=== PATIENT | male | born 1930 | race Caucasian/White ===

== ENCOUNTER 2016-08-18 14:19 | Inpatient (IN) | payer MEDICARE ==
[2016-08-18] MEDS ORDERED: NS 0.9% 1000 ML* 1,000 ML IV ONE (18:39)
--- NOTE | 2016-08-18 18:49 | RAD ---
Indication: Cough, pneumonia. Single frontal view of the chest performed at 1825 hours was reviewed. Comparison is made with previous exam dated June 08, 2016. No mediastinal shift is noted. Heart is of normal size and configuration. Lung riojas appear clear. Pacemaker leads are in place. IMPRESSION: PACEMAKER LEADS IN PLACE. NO PNEUMOTHORAX OR PNEUMONIA IS NOTED.
[2016-08-18 18:54] LABS: Hematocrit 44 % (42-52); Hemoglobin 15.1 g/dl (14.0-18.0); Mean Corpuscular HGB Conc 34 g/dl (31-36); Mean Corpuscular Hemoglobin 31 pg (27-31); Mean Corpuscular Volume 90 fL (80-94); Mean Platelet Volume 7 um3 (7.4-10.4); Red Blood Count 4.95 10^6/ul (4.0-5.4); Red Cell Distribution Width 13 % (10.5-15); White Blood Count 5.7 10^3/ul (3.5-10.8)
[2016-08-18 19:15] LABS: BUN/Creatinine Ratio 17.5 (8-20); Calcium 9.4 mg/dL (8.6-10.3); EGFR African American 94.8 (>60); EGFR Non-African American 73.7 (>60); Globulin 2.9 g/dL (2-4); Potassium 3.4 mmol/L (3.5-5.0); Total Bilirubin 0.5 mg/dL (0.2-1.0); Total Protein 6.9 g/dL (6.4-8.9)
[2016-08-18 19:17] LABS: Troponin I 0.03 ng/mL (<0.04)
[2016-08-18 19:47] LABS: Urine Bilirubin Negative (Negative); Urine Glucose Negative (Negative); Urine Nitrite Negative (Negative)
[2016-08-18] MEDS ORDERED: Ramipril CAP* 10 MG PO ONE (21:28)
[2016-08-18] MEDS ORDERED: hydrALAZINE TAB* 25 MG PO ONE (21:28)
--- NOTE | 2016-08-18 22:42 | ED ---
Vahe Hoffman Adam, scribed for Yasmany Benedict MD on 08/18/16 at 1816 . Complex/Multi-Sys Presentation - HPI Summary HPI Summary: Pt is an 86 year old male presenting with weakness and confusion since being dx with PNA and flu 5 days ago. His states that they were on a cruise until yesterday but the pt had blood work done on the cruise 5 days ago. They dx'd him with PNA, flu, and found fluid in his lungs. Pt has already completed a 5 day regimen of Tamiflu. However, his states that he has been displaying confusion, memory loss, and generalized weakness (his has to help him up). He has also been having decreased PO intake and diarrhea (1x on the cruise and 1x today). He ate oatmeal this morning. PMHx of HTN, HLD, CAD, COPD, and ICD. - History Of Current Complaint Chief Complaint: EDGeneral Time Seen by Provider: 08/18/16 17:57 Hx Obtained From: Patient Onset/Duration: Gradual Onset, Lasting Days, Still Present Timing: Constant Severity Currently: Moderate Severity Initially: Moderate Aggravating Factor(s): Nothing Alleviating Factor(s): Nothing Associated Signs And Symptoms: Positive: Confusion, Weakness, Diarrhea - Allergies/Home Medications Allergies/Adverse Reactions: Allergies Allergy/AdvReac Type Severity Reaction Status Date / Time Celecoxib [From Celebrex] Allergy Unknown Verified 03/15/16 17:19 Reaction Details environmental Allergy Unknown Unknown Uncoded 03/15/16 17:19 Reaction Details PMH/Surg Hx/FS Hx/Imm Hx Endocrine/Hematology History: Reports: Hx Anticoagulant Therapy - low dose asa Denies: Hx Diabetes Cardiovascular History: Reports: Hx Aneurysm, Hx Angina, Hx Coronary Artery Disease, Hx Hypercholesterolemia, Hx Hypertension, Hx Pacemaker/ICD, Other Cardiovascular Problems/Disorders - THORACIC AORTIC ANEURYSM Denies: Hx Myocardial Infarction, Hx Valvular Heart Disease Respiratory History: Reports: Hx Chronic Obstructive Pulmonary Disease (COPD), Hx Sleep Apnea - current BiPAP user, Other Respiratory Problems/Disorders - allergic rhinitis Denies: Hx Asthma GI History: Reports: Hx Gall Bladder Disease - s/p cholecystectomy, Hx Gastroesophageal Reflux Disease - meds, Other GI Disorders - s/p bilateral inguinal hernia History: Reports: Hx Benign Prostatic Hyperplasia - w/o urinary obstruction Denies: Hx Renal Disease - [place]ULI IN 70'S Sensory History: Reports: Hx Contacts or Glasses Opthamlomology History: Reports: Hx Contacts or Glasses Neurological History: Reports: Other Neuro Impairments/Disorders - brain shunt Psychiatric History: Reports: Hx Depression - Surgical History Surgery Procedure, Year, and Place: tonsils, bilateral inguinal hernia, 2009- pacemaker, 2009- PROGRAM COORDINATOR EXECUTIVE EDUCATION shunt for NPH,left arm bicep removal, cholecysectomy; head SX 2X to the shunt 02/2015 at [place]. Infectious Disease History: No Infectious Disease History: Denies: Traveled Outside the [place] in Last 30 Days - Family History Known Family History: Positive: Hypertension, Other - cancer: lung, colon - Social History Occupation: Retired Lives: With Family - Alcohol Use: None Hx Substance Use: No Substance Use Type: Reports: None Hx Tobacco Use: No Smoking Status (MU): Never Smoked Tobacco Review of Systems Positive: Diarrhea, Other - Decreased PO intake Neurological: Other - Confusion Positive: Weakness - Generalized All Other Systems Reviewed And Are Negative: Yes Physical Exam - Summary Physical Exam Summary: General: Comfortable, pleasant, alert HEENT: Moist mucosa, FLOR[place] Neck: soft, supple, no adenopathy, no edema Heart: Heart sounds are distant but no obvious murmurs, rubs, or gallops Lungs: Clear to auscultation, breathing comfortable, no wheezes or rales Abdominal: Soft, flat, nontender Extremities: No edema, no calf tenderness Neuro: Alert and oriented x 3 Psych: Logical, coherent Triage Information Reviewed: Yes Vital Signs On Initial Exam: Initial Vitals Temp Pulse Resp BP Pulse Ox 98.2 F 70 16 135/77 98 08/18/16 15:19 08/18/16 15:19 08/18/16 15:19 08/18/16 15:19 08/18/16 15:19 Vital Signs Reviewed: Yes Diagnostics - Vital Signs Vital Signs Temp Pulse Resp BP Pulse Ox 08/18/16 15:19 98.2 F 70 16 135/77 98 - Laboratory Lab Results: Lab Results 08/18/16 08/18/16 08/18/16 Range/Units 18:40 18:40 18:40 WBC 5.7 (3.5-10.8) 10^3/ul RBC 4.95 (4.0-5.4) 10^6/ul Hgb 15.1 (14.0-18.0) g/dl Hct 44 (42-52) % MCV 90 (80-94) fL MCH 31 (27-31) pg MCHC 34 (31-36) g/dl RDW 13 (10.5-15) % Plt Count 147 L (150-450) 10^3/ul MPV 7 L (7.4-10.4) um3 Neut % (Auto) 59.0 (38-83) % Lymph % (Auto) 31.5 (25-47) % [place] % (Auto) 7.3 (1-9) % Eos % (Auto) 1.5 (0-6) % Baso % (Auto) 0.7 (0-2) % Absolute Neuts (auto) 3.4 (1.5-7.7) 10^3/ul Absolute Lymphs (auto) 1.8 (1.0-4.8) 10^3/ul Absolute Monos (auto) 0.4 (0-0.8) 10^3/ul Absolute Eos (auto) 0.1 (0-0.6) 10^3/ul Absolute Basos (auto) 0 (0-0.2) 10^3/ul Absolute Nucleated RBC 0.01 10^3/ul Nucleated RBC % 0.1 Sodium 134 (133-145) mmol/L Potassium 3.4 L (3.5-5.0) mmol/L Chloride 101 (101-111) mmol/L Carbon Dioxide 25 (22-32) mmol/L Anion Gap 8 (2-11) mmol/L BUN 17 (6-24) mg/dL Creatinine 0.97 (0.67-1.17) mg/dL Est GFR ( Amer) 94.8 (>60) Est GFR (Non-Af Amer) 73.7 (>60) BUN/Creatinine Ratio 17.5 (8-20) Glucose 119 H (70-100) mg/dL Lactic Acid 0.8 (0.5-2.0) mmol/L Calcium 9.4 (8.6-10.3) mg/dL Total Bilirubin 0.50 (0.2-1.0) mg/dL AST 30 (13-39) U/L ALT 46 (7-52) U/L Alkaline Phosphatase 42 (34-104) U/L Troponin I 0.03 (<0.04) ng/mL Total Protein 6.9 (6.4-8.9) g/dL Albumin 4.0 (3.2-5.2) g/dL Globulin 2.9 (2-4) g/dL Albumin/Globulin Ratio 1.4 (1-3) Urine Color Urine Appearance Urine pH (5-9) Ur Specific [place] (1.010-1.030) Urine Protein (Negative) Urine Ketones (Negative) Urine Blood (Negative) Urine Nitrate (Negative) Urine Bilirubin (Negative) Urine Urobilinogen (Negative) Ur Leukocyte Esterase (Negative) Urine Glucose (Negative) 08/18/16 Range/Units 19:40 WBC (3.5-10.8) 10^3/ul RBC (4.0-5.4) 10^6/ul Hgb (14.0-18.0) g/dl Hct (42-52) % MCV (80-94) fL MCH (27-31) pg MCHC (31-36) g/dl RDW (10.5-15) % Plt Count (150-450) 10^3/ul MPV (7.4-10.4) um3 Neut % (Auto) (38-83) % Lymph % (Auto) (25-47) % [place] % (Auto) (1-9) % Eos % (Auto) (0-6) % Baso % (Auto) (0-2) % Absolute Neuts (auto) (1.5-7.7) 10^3/ul Absolute Lymphs (auto) (1.0-4.8) 10^3/ul Absolute Monos (auto) (0-0.8) 10^3/ul Absolute Eos (auto) (0-0.6) 10^3/ul Absolute Basos (auto) (0-0.2) 10^3/ul Absolute Nucleated RBC 10^3/ul Nucleated RBC % Sodium (133-145) mmol/L Potassium (3.5-5.0) mmol/L Chloride (101-111) mmol/L Carbon Dioxide (22-32) mmol/L Anion Gap (2-11) mmol/L BUN (6-24) mg/dL Creatinine (0.67-1.17) mg/dL Est GFR ( Amer) (>60) Est GFR (Non-Af Amer) (>60) BUN/Creatinine Ratio (8-20) Glucose (70-100) mg/dL Lactic Acid (0.5-2.0) mmol/L Calcium (8.6-10.3) mg/dL Total Bilirubin (0.2-1.0) mg/dL AST (13-39) U/L ALT (7-52) U/L Alkaline Phosphatase (34-104) U/L Troponin I (<0.04) ng/mL Total Protein (6.4-8.9) g/dL Albumin (3.2-5.2) g/dL Globulin (2-4) g/dL Albumin/Globulin Ratio (1-3) Urine Color Yellow Urine Appearance Clear Urine pH 5.0 (5-9) Ur Specific [place] 1.012 (1.010-1.030) Urine Protein Negative (Negative) Urine Ketones Negative (Negative) Urine Blood Negative (Negative) Urine Nitrate Negative (Negative) Urine Bilirubin Negative (Negative) Urine Urobilinogen Negative (Negative) Ur Leukocyte Esterase Negative (Negative) Urine Glucose Negative (Negative) Result Diagrams: 08/18/16 18:40 08/18/16 18:40 Lab Statement: Any lab studies that have been ordered have been reviewed, and results considered in the medical decision making process. - Radiology CXR Radiology Interpretation Completed By: Radiologist - IMPRESSION: PACEMAKER LEADS IN PLACE. NO PNEUMOTHORAX OR PNEUMONIA IS NOTED. - EKG 18:39 Cardiac Rate: NL - 70 BPM EKG Rhythm: Sinus Rhythm - Normal - Additional Comments Diagnostic Additional Comments: Troponin I - 0.03 Re-Evaluation - Re-Evaluation First Eval Re-Evaluation Time: 20:01 - VS stable, pt remains alert. No vomiting or diarrhea. Will give pt something to eat, attempt ambulation, and see what his strength is after fluids. Complex Multi-Symp Course/Dx Assessment/Plan: They were on a cruise where he was diagnosed with influenza. states that he was swabbed and the diagnosis was confirmed. He had been doing fairly well but remained weak. He has been having episodes of mild brief confusion. He is improving in terms of his episodes of confusion and has been gaining a little bit of strength but he has been symptomatic even today. Work- up was essentially benign but we tried to ambulate him and he did very poorly according to the nurses. I believe this is mostly the result of deconditioning, lack of appetite, and generalized weakness. No signs of sepsis or PNA. Because of his weakness and inability to be discharged, we request admission. - Diagnoses Provider Diagnoses: Weakness Discharge - Discharge Plan Condition: Fair Disposition: ADMITTED TO [facility] The documentation as recorded by the Vahe chin Adam accurately reflects the service I personally performed and the decisions made by me, Yasmany Benedict MD.
[2016-08-19] MEDS: NS 0.9% 1000 ML* 1,000 ML IV SCH ×2 (04:03→15:27)
[2016-08-19] MEDS: Acetaminophen TAB* 325 MG PO PRN ×2 (04:04→16:01)
[2016-08-19] MEDS: Heparin VIAL(*) 5000 UNITS/ML VIAL (FIVE THOUSAND) SUBCUT SCH ×2 (05:54→13:24)
--- NOTE | 2016-08-19 07:50 | RAD ---
INDICATION: Altered mental status COMPARISON: CT June 08, 2016 TECHNIQUE: Noncontrast axial source images were acquired from the skull base to the vertex. FINDINGS: Ventricles/sulci: There is persistent mild ventricular prominence. There is a ventriculostomy catheter entering from a right frontal approach. The tip of the catheter is in the body of the left lateral ventricle, unchanged. Brain parenchyma: There is periventricular and subcortical white matter change compatible with chronic ischemia. Intracranial hemorrhage:None. Extra-axial spaces: There are no abnormal extra axial fluid collections or evidence of extra-axial mass. Calvarium: There is no calvarial fracture or other calvarial abnormality. Scalp: There is no evidence of scalp or extracalvarial soft tissue abnormality. Paranasal sinuses/mastoid: The paranasal sinuses and mastoid air cells are clear. Other: None. IMPRESSION: NO CHANGE IN VENTRICULAR SIZE OR APPEARANCE OF VENTRICULOSTOMY CATHETER. CHRONIC MICROVASCULAR ISCHEMIC CHANGES.
--- NOTE | 2016-08-19 08:19 | HP ---
HISTORY AND PHYSICAL: DATE OF ADMISSION: 08/19/16 PRIMARY CARE PHYSICIAN: Dr. Ramon Walker. CHIEF COMPLAINT: Weakness and confusion. HISTORY OF PRESENT ILLNESS: The patient is an 86-year-old gentleman who was recently on a cruise and actually just came back earlier today when his brought him into the hospital for further evaluation. Apparently, early on in the cruise he was diagnosed with influenza. He was put on Tamiflu, and about the day afterwards became more weak and much more confused. In fact, one day he was in the bathroom with his ; he lost his balance fell backwards on her and almost crushed her. He was not eating or drinking much either. He had hallucinations where he thought there were extra beds in the bedroom and people in the bedrooms. He thought he was stuck on the railroad tracks at one point. Today, the patient is still confused but not quite so much as his states. He has no specific physical complaints such as chest pain, shortness of breath, abdominal pain, nausea, vomiting, diarrhea, increased frequency of urination or pain on urination. PAST MEDICAL HISTORY: He has a past medical history significant for hypertension, obstructive sleep apnea, with CPAP, depression, asthma, GERD, BPH , NPH, subdural hematoma. PAST SURGICAL HISTORY: Significant for right rotator cuff repair, INFLATED BALL MOLDER shunt in 2009, pacemaker for symptomatic bradycardia in 2009, status post cholecystectomy , status post left biceps removal. CURRENT MEDICATIONS: Are as follows: 1. Carvedilol 25 mg twice daily. 2. Symbicort 160/4.5 two puffs twice daily. 3. Glucosamine chondroitin one tab twice daily. 4. Furosemide 400 mg daily. 5. Finasteride 5 mg daily. 6. Multivitamin one tablet daily. 7. Singulair 10 mg daily. 8. Melatonin 10 mg at bedtime. 9. Carafate 1 g two times a day. 10. Zoloft 50 mg daily. 11. Omeprazole 20 mg daily. 12. Clonidine 0.3 mg 3 times a day. 13. Hydralazine 50 mg 3 times a day. 14. Ramipril 10 mg twice daily. ALLERGIES: He has an allergy/adverse reaction to CELEBREX. FAMILY HISTORY: The patient denies any family history of coronary artery disease or diabetes. The patient's father passed from colon cancer. Two brothers and a brother from lung cancer, another brother passed from colon cancer. SOCIAL HISTORY: He denies tobacco, alcohol, or recreational drug use. 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 He is . His , Amanda Solorio, is his surrogate decision maker. REVIEW OF SYSTEMS: Unable to obtain from the patient as he was too confused. PHYSICAL EXAMINATION GENERAL: An obese gentleman lying in bed, in no acute distress. VITAL SIGNS: Blood pressure 183/97, respiratory rate 17 breaths per minute, heart rate 70 beats per minute, temperature 98.2 degrees. HEENT: Normocephalic and atraumatic. Pupils are equal, round and reactive to light. Moist mucous membranes. NECK: Supple. No JVD, bruits, palpable thyroid or lymphadenopathy. CHEST: Clear to auscultation and percussion bilaterally. CARDIOVASCULAR: S1, S2 appreciated. Regular rate and rhythm. No murmurs, gallops, or rubs. ABDOMEN: Positive bowel sounds in all 4 quadrants. Soft, nontender, and nondistended. No hepatosplenomegaly. EXTREMITIES: No cyanosis, clubbing, or edema. +2 peripheral pulses bilaterally. NEUROLOGIC: Alert and oriented x3. Moves all extremities. SKIN: No distinct rashes or abnormalities. LABORATORY DATA: White count 5.7, hemoglobin 15.1, hematocrit 44, platelets 157. Sodium 134, potassium 3.4, chloride 101, CO2 25, BUN 17, creatinine 1.97, glucose 119. Urinalysis unremarkable. Brain CT results are pending. Chest x-ray is interpreted by Radiology as pacemaker leads in place, no pneumopyothorax or pneumonia noted. EKG shows normal sinus rhythm, no ventricular paced complexes. ASSESSMENT AND PLAN: 1. Confusion. This may be secondary to Tamiflu. It started about a day or so afterwards, and delirium is a side effect that can be quite serious. He was also dehydrated and in an unfamiliar place on the cruise. I anticipate he should make a quite recovery and his does note that he's somewhat better than he was yesterday. I will generally hydrate him with normal saline. I will observe him with neurological checks and hold his diuretics, and I anticipate he will get better quite quickly. 2. Hypertension. Somewhat high. We will give him meds and adjust medications accordingly if necessary. 3. Depression. Stable. Continue current regimen. 4. BPH. Stable. Continue finasteride. 5. GERD. Stable. Continue omeprazole. 6. DVT prophylaxis. Heparin subcu. 7. The patient is a full code. TIME SPENT: Over 75 minutes were spent on this H and P, more than 40 minutes of which were spent direct [id number] contact with the patient in evaluation, physical exam, counseling, and coordination of care. CC: Dr. Ramon Walker* [id number]/CPS #: [id number] ANNA
[2016-08-19] MEDS: Mometasone/Formoter 200/5 MDI INH SCH ×2 (08:29→20:01)
[2016-08-19] MEDS: Multivitamins/Minerals TAB PO SCH (08:50)
[2016-08-19] MEDS: Finasteride TAB* 5 MG PO SCH (08:50)
[2016-08-19] MEDS: Carvedilol TAB* 25 MG PO SCH ×2 (08:50→16:01)
[2016-08-19] MEDS: Sertraline* 50 MG TAB PO SCH (08:50)
[2016-08-19] MEDS: Omeprazole CAP* 20 MG PO SCH (08:50)
[2016-08-19] MEDS: Sucralfate TAB* 1 GM PO SCH ×2 (08:50→13:24)
[2016-08-19] MEDS: Montelukast Sodium TAB* 10 MG PO SCH (08:50)
[2016-08-19] MEDS: cloNIDine TAB* 0.1 MG PO SCH ×2 (08:50→13:24)
[2016-08-19] MEDS: Ramipril CAP* 10 MG PO SCH (08:50)
[2016-08-19] MEDS: hydrALAZINE TAB* 25 MG PO SCH ×2 (08:51→13:24)
[2016-08-19] MEDS ORDERED: Potassium Chlor TAB* 20 MEQ TAB.ER PO ONE (11:11)
[2016-08-19] MEDS ORDERED: Furosemide TAB* 40 MG PO ONE (11:47)
[2016-08-19] MEDS ORDERED: guaiFENesin LIQ* 100 MG/5 ML UDC PO PRN (15:30)
--- NOTE | 2016-08-19 20:14 | PN ---
Subjective Date of Service: 08/19/16 Interval History: Patient seen and evaluated at 1530 Pt A+o x3 resting in bed stating he is tired and was up all night. he reports he feels weak and thinks he needs subacute rehab. He reports PICKARD and dizziness but states he has had these symptoms for years and is not new. No fevers and chills. reports good appetite. occasional cough with sputum production. No N/V/ D. No abdominal pain. Reports today he feels a little better. Per son who is at the bedside - he confirms his father has had the intermittent PICKARD and dizziness for years and was told there was nothing to do. He believes his PRODUCT RESPONSIBILITY LIAISON shunt was [facility] at [facility]. He reports his father has been declining the last year or so with increasing dementia and not as active Objective Active Medications: Acetaminophen (Tylenol Tab*) 650 mg PO Q4H PRN PRN Reason: FEVER/PAIN Last Admin: 08/19/16 16:01 Dose: 650 mg Carvedilol (Coreg Tab*) 25 mg PO BID WITH MEALS [facility] Last Admin: 08/19/16 16:01 Dose: 25 mg Clonidine HCl (Catapres Tab*) 0.3 mg PO TID [facility] Last Admin: 08/19/16 13:24 Dose: 0.3 mg Finasteride (Proscar Tab*) 5 mg PO DAILY [facility] Last Admin: 08/19/16 08:50 Dose: 5 mg Furosemide (Lasix Tab*) 40 mg PO DAILY [facility] Guaifenesin (Robitussin*) 5 ml PO Q6H PRN PRN Reason: COUGH Last Admin: 08/19/16 16:01 Dose: 5 ml Heparin Sodium (Porcine) (Heparin Vial(*)) 5,000 units SUBCUT Q8HR [facility] Last Admin: 08/19/16 13:24 Dose: 5,000 units Hydralazine HCl (Apresoline Tab*) 50 mg PO TID [facility] Last Admin: 08/19/16 13:24 Dose: 50 mg Sodium Chloride (Ns 0.9% 1000 Ml*) 1,000 mls @ 100 mls/hr IV PER RATE [facility] Last Admin: 08/19/16 15:27 Dose: 100 mls/hr Influenza Virus Vaccine (Fluarix *Quad* *) 0.5 ml IM .ONCE ONE Stop: 08/21/16 09:01 Melatonin (Melatonin (Nf)) 1 tab PO BEDTIME [facility] Mometasone Furoate/Formoterol Fumar (Dulera 200/5 Mdi*) 2 puff INH BID [facility] PRN Reason: Protocol Last Admin: 08/19/16 20:01 Dose: 2 puff Montelukast Sodium (Singulair Tab*) 10 mg PO DAILY [facility] Last Admin: 08/19/16 08:50 Dose: 10 mg Multivitamins/Minerals (Theragran/Minerals Tab*) 1 tab PO DAILY [facility] Last Admin: 08/19/16 08:50 Dose: 1 tab Omeprazole (Prilosec Cap*) 20 mg PO DAILY@0730 [facility] Last Admin: 08/19/16 08:50 Dose: 20 mg Ramipril (Altace Cap*) 10 mg PO BID [facility] Last Admin: 08/19/16 08:50 Dose: 10 mg Sertraline HCl (Zoloft*) 50 mg PO DAILY [facility] Last Admin: 08/19/16 08:50 Dose: 50 mg Sucralfate (Carafate*) 1 gm PO TID [facility] Last Admin: 08/19/16 13:24 Dose: 1 gm Vital Signs 08/19/16 08/19/16 08/19/16 03:10 04:05 04:23 Temperature 97.3 F Pulse Rate 70 Respiratory 16 16 Rate Blood Pressure 192/71 151/90 (mmHg) O2 Sat by Pulse 97 Oximetry 08/19/16 08/19/16 08/19/16 07:52 08:00 08:33 Temperature 98.1 F Pulse Rate 70 70 Respiratory 18 16 14 Rate Blood Pressure 193/85 (mmHg) O2 Sat by Pulse 97 98 Oximetry 08/19/16 08/19/16 11:11 15:16 Temperature 97.7 F Pulse Rate 70 70 Respiratory 18 18 Rate Blood Pressure 183/75 120/70 (mmHg) O2 Sat by Pulse 96 96 Oximetry Appearance: elderly male laying in bed in NAD. A+O x3. Eyes: No Scleral Icterus, PERRLA Ears/Nose/Mouth/Throat: NL Teeth, Lips, Gums, Mucous Membranes Moist Neck: NL Appearance and Movements; NL JVP Respiratory: Symmetrical Chest Expansion and Respiratory Effort, Clear to Auscultation Cardiovascular: NL Sounds; No Murmurs; No JVD, RRR, No Edema Abdominal: NL Sounds; No Tenderness; No Distention Lymphatic: No Cervical Adenopathy Extremities: No Edema, No Clubbing, Cyanosis Skin: No Rash or Ulcers, No Nodules or Sclerosis Neurological: Alert and Oriented x 3, NL Sensation, NL Gait, NL Muscle Strength and Tone Lines/Tubes/Other Access: Clean, Dry and Intact Peripheral IV Nutrition: Taking PO's Result Diagrams: 08/18/16 18:40 08/18/16 18:40 Additional Lab and Data: Lab Results 08/18/16 08/18/16 08/18/16 Range/Units 18:40 18:40 18:40 WBC 5.7 (3.5-10.8) 10^3/ul RBC 4.95 (4.0-5.4) 10^6/ul Hgb 15.1 (14.0-18.0) g/dl Hct 44 (42-52) % MCV 90 (80-94) fL MCH 31 (27-31) pg MCHC 34 (31-36) g/dl RDW 13 (10.5-15) % Plt Count 147 L (150-450) 10^3/ul MPV 7 L (7.4-10.4) um3 Neut % (Auto) 59.0 (38-83) % Lymph % (Auto) 31.5 (25-47) % [place] % (Auto) 7.3 (1-9) % Eos % (Auto) 1.5 (0-6) % Baso % (Auto) 0.7 (0-2) % Absolute Neuts (auto) 3.4 (1.5-7.7) 10^3/ul Absolute Lymphs (auto) 1.8 (1.0-4.8) 10^3/ul Absolute Monos (auto) 0.4 (0-0.8) 10^3/ul Absolute Eos (auto) 0.1 (0-0.6) 10^3/ul Absolute Basos (auto) 0 (0-0.2) 10^3/ul Absolute Nucleated RBC 0.01 10^3/ul Nucleated RBC % 0.1 Sodium 134 (133-145) mmol/L Potassium 3.4 L (3.5-5.0) mmol/L Chloride 101 (101-111) mmol/L Carbon Dioxide 25 (22-32) mmol/L Anion Gap 8 (2-11) mmol/L BUN 17 (6-24) mg/dL Creatinine 0.97 (0.67-1.17) mg/dL Est GFR ( Amer) 94.8 (>60) Est GFR (Non-Af Amer) 73.7 (>60) BUN/Creatinine Ratio 17.5 (8-20) Glucose 119 H (70-100) mg/dL Lactic Acid 0.8 (0.5-2.0) mmol/L Calcium 9.4 (8.6-10.3) mg/dL Total Bilirubin 0.50 (0.2-1.0) mg/dL AST 30 (13-39) U/L ALT 46 (7-52) U/L Alkaline Phosphatase 42 (34-104) U/L Troponin I 0.03 (<0.04) ng/mL Total Protein 6.9 (6.4-8.9) g/dL Albumin 4.0 (3.2-5.2) g/dL Globulin 2.9 (2-4) g/dL Albumin/Globulin Ratio 1.4 (1-3) Urine Color Urine Appearance Urine pH (5-9) Ur Specific [place] (1.010-1.030) Urine Protein (Negative) Urine Ketones (Negative) Urine Blood (Negative) Urine Nitrate (Negative) Urine Bilirubin (Negative) Urine Urobilinogen (Negative) Ur Leukocyte Esterase (Negative) Urine Glucose (Negative) 08/18/16 Range/Units 19:40 WBC (3.5-10.8) 10^3/ul RBC (4.0-5.4) 10^6/ul Hgb (14.0-18.0) g/dl Hct (42-52) % MCV (80-94) fL MCH (27-31) pg MCHC (31-36) g/dl RDW (10.5-15) % Plt Count (150-450) 10^3/ul MPV (7.4-10.4) um3 Neut % (Auto) (38-83) % Lymph % (Auto) (25-47) % [place] % (Auto) (1-9) % Eos % (Auto) (0-6) % Baso % (Auto) (0-2) % Absolute Neuts (auto) (1.5-7.7) 10^3/ul Absolute Lymphs (auto) (1.0-4.8) 10^3/ul Absolute Monos (auto) (0-0.8) 10^3/ul Absolute Eos (auto) (0-0.6) 10^3/ul Absolute Basos (auto) (0-0.2) 10^3/ul Absolute Nucleated RBC 10^3/ul Nucleated RBC % Sodium (133-145) mmol/L Potassium (3.5-5.0) mmol/L Chloride (101-111) mmol/L Carbon Dioxide (22-32) mmol/L Anion Gap (2-11) mmol/L BUN (6-24) mg/dL Creatinine (0.67-1.17) mg/dL Est GFR ( Amer) (>60) Est GFR (Non-Af Amer) (>60) BUN/Creatinine Ratio (8-20) Glucose (70-100) mg/dL Lactic Acid (0.5-2.0) mmol/L Calcium (8.6-10.3) mg/dL Total Bilirubin (0.2-1.0) mg/dL AST (13-39) U/L ALT (7-52) U/L Alkaline Phosphatase (34-104) U/L Troponin I (<0.04) ng/mL Total Protein (6.4-8.9) g/dL Albumin (3.2-5.2) g/dL Globulin (2-4) g/dL Albumin/Globulin Ratio (1-3) Urine Color Yellow Urine Appearance Clear Urine pH 5.0 (5-9) Ur Specific [place] 1.012 (1.010-1.030) Urine Protein Negative (Negative) Urine Ketones Negative (Negative) Urine Blood Negative (Negative) Urine Nitrate Negative (Negative) Urine Bilirubin Negative (Negative) Urine Urobilinogen Negative (Negative) Ur Leukocyte Esterase Negative (Negative) Urine Glucose Negative (Negative) Assess/Plan/Problems-Billing Assessment: Mr. Solorio is a 86 yo male with a PMH of HTN, KATHY with CPAP, GERD, NPH s/p PRODUCT RESPONSIBILITY LIAISON shunt, pacemaker who was recently diagnosed with influenza presents with weakness and confusion - Patient Problems (1) Weakness Comment: - weakness and confusion, suspect secondary to Influenza. Did have a positive Influenza test. Possible delirium from illness/Tamiflu. Confusion appears to be improving. - No leukocytosis, fevers. No PNA noted on CXR - send blood cx - PT eval (2) NPH (normal pressure hydrocephalus) Comment: The patient is s/p shunt placement. underwent shunt series in 02/2016 which appeared normal. (3) Dizziness Comment: This has been an intermittent chronic symptom for patient. (4) HTN (hypertension) Comment: Continue Coreg, Clonidine, Hydralazine, Ramipril. Hold Lasix. (5) Sleep apnea Comment: Continue CPAP (6) DVT prophylaxis Comment: HSQ (7) Full code status Status and Disposition: inpatient with weakness and confusion thought to be secondary to Influenza. Pt would like to go to subacute rehab
[2016-08-20] MEDS: cloNIDine TAB* 0.1 MG PO SCH ×4 (00:08→21:01)
[2016-08-20] MEDS: hydrALAZINE TAB* 25 MG PO SCH ×4 (00:09→21:02)
[2016-08-20] MEDS: Ramipril CAP* 10 MG PO SCH ×3 (00:11→21:02)
[2016-08-20] MEDS: MELATONIN PO SCH ×2 (00:11→22:53)
[2016-08-20] MEDS: Acetaminophen TAB* 325 MG PO PRN ×2 (00:11→21:24)
[2016-08-20] MEDS: Sucralfate TAB* 1 GM PO SCH ×4 (00:11→21:03)
[2016-08-20] MEDS: Heparin VIAL(*) 5000 UNITS/ML VIAL (FIVE THOUSAND) SUBCUT SCH ×4 (00:13→22:21)
[2016-08-20] MEDS: NS 0.9% 1000 ML* 1,000 ML IV SCH ×2 (02:20→13:22)
[2016-08-20 05:56] LABS: Hematocrit 40 % (42-52); Hemoglobin 13.6 g/dl (14.0-18.0); Mean Corpuscular HGB Conc 34 g/dl (31-36); Mean Corpuscular Hemoglobin 31 pg (27-31); Mean Corpuscular Volume 89 fL (80-94); Mean Platelet Volume 7 um3 (7.4-10.4); Red Blood Count 4.44 10^6/ul (4.0-5.4); Red Cell Distribution Width 13 % (10.5-15); White Blood Count 5.2 10^3/ul (3.5-10.8)
[2016-08-20 06:12] LABS: BUN/Creatinine Ratio 14.3 (8-20); Calcium 8.8 mg/dL (8.6-10.3); EGFR African American 123.8 (>60); EGFR Non-African American 96.2 (>60); Potassium 3.2 mmol/L (3.5-5.0)
[2016-08-20] MEDS: Mometasone/Formoter 200/5 MDI INH SCH ×2 (08:08→20:48)
[2016-08-20] MEDS: Carvedilol TAB* 25 MG PO SCH ×2 (08:54→17:30)
[2016-08-20] MEDS: Finasteride TAB* 5 MG PO SCH (08:54)
[2016-08-20] MEDS: Omeprazole CAP* 20 MG PO SCH (08:54)
[2016-08-20] MEDS: Montelukast Sodium TAB* 10 MG PO SCH (08:55)
[2016-08-20] MEDS: Multivitamins/Minerals TAB PO SCH (08:55)
[2016-08-20] MEDS: Sertraline* 50 MG TAB PO SCH (08:55)
[2016-08-20] MEDS ORDERED: Furosemide TAB* 40 MG PO SCH (09:00)
--- NOTE | 2016-08-20 13:12 | PN ---
Subjective Date of Service: 08/20/16 Interval History: Patient seen this morning. Intermittent cough, reports he feels a bit dizzy. Son present, states patient seems more awake than yesterday. Has had long time short-term memory problems. Feels weak. Family History: Unchanged from Admission Social History: Unchanged from Admission Past Medical History: Unchanged from Admission Objective Active Medications: Acetaminophen (Tylenol Tab*) 650 mg PO Q4H PRN Carvedilol (Coreg Tab*) 25 mg PO BID WITH MEALS MIKE Clonidine HCl (Catapres Tab*) 0.3 mg PO TID MIKE Finasteride (Proscar Tab*) 5 mg PO DAILY MIKE Guaifenesin (Robitussin*) 5 ml PO Q6H PRN Heparin Sodium (Porcine) (Heparin Vial(*)) 5,000 units SUBCUT Q8HR MIKE Hydralazine HCl (Apresoline Tab*) 50 mg PO TID [facility] Sodium Chloride (Ns 0.9% 1000 Ml*) 1,000 mls @ 75 mls/hr IV PER RATE [facility] Influenza Virus Vaccine (Fluarix *Quad* *) 0.5 ml IM .ONCE ONE Melatonin (Melatonin (Nf)) 1 tab PO BEDTIME MIKE Mometasone Furoate/Formoterol Fumar (Dulera 200/5 Mdi*) 2 puff INH BID MIKE Montelukast Sodium (Singulair Tab*) 10 mg PO DAILY MIKE Multivitamins/Minerals (Theragran/Minerals Tab*) 1 tab PO DAILY MIKE Omeprazole (Prilosec Cap*) 20 mg PO DAILY@0730 MIKE Ramipril (Altace Cap*) 10 mg PO BID MIKE Sertraline HCl (Zoloft*) 50 mg PO DAILY [facility] Sucralfate (Carafate*) 1 gm PO TID [facility] Vital Signs 08/19/16 08/19/16 08/19/16 15:16 19:21 20:00 Temperature 97.9 F Pulse Rate 70 70 Respiratory 18 15 15 Rate Blood Pressure 120/70 122/61 (mmHg) O2 Sat by Pulse 96 96 Oximetry 08/19/16 08/20/16 08/20/16 23:36 07:48 08:00 Temperature 98.0 F 97.5 F Pulse Rate 70 70 Respiratory 17 16 18 Rate Blood Pressure 159/72 166/62 (mmHg) O2 Sat by Pulse 96 96 Oximetry 08/20/16 08/20/16 08:12 11:11 Temperature 98.0 F Pulse Rate 70 70 Respiratory 14 16 Rate Blood Pressure 139/58 (mmHg) O2 Sat by Pulse 95 96 Oximetry Oxygen Devices in Use Now: None Appearance: Elderly, M, laying in chair in NAD Eyes: No Scleral Icterus Ears/Nose/Mouth/Throat: Mucous Membranes Moist Neck: NL Appearance and Movements; NL JVP Respiratory: Symmetrical Chest Expansion and Respiratory Effort, Clear to Auscultation Cardiovascular: NL Sounds; No Murmurs; No JVD, RRR Abdominal: NL Sounds; No Tenderness; No Distention Lymphatic: No Cervical Adenopathy Extremities: No Edema Skin: No Rash or Ulcers Neurological: - - Alert, oriented to self, place, "2015" Result Diagrams: 08/20/16 05:38 08/20/16 05:38 Additional Lab and Data: Lab Results 08/18/16 08/18/16 08/18/16 Range/Units 18:40 18:40 18:40 WBC 5.7 (3.5-10.8) 10^3/ul RBC 4.95 (4.0-5.4) 10^6/ul Hgb 15.1 (14.0-18.0) g/dl Hct 44 (42-52) % MCV 90 (80-94) fL MCH 31 (27-31) pg MCHC 34 (31-36) g/dl RDW 13 (10.5-15) % Plt Count 147 L (150-450) 10^3/ul MPV 7 L (7.4-10.4) um3 Neut % (Auto) 59.0 (38-83) % Lymph % (Auto) 31.5 (25-47) % [place] % (Auto) 7.3 (1-9) % Eos % (Auto) 1.5 (0-6) % Baso % (Auto) 0.7 (0-2) % Absolute Neuts (auto) 3.4 (1.5-7.7) 10^3/ul Absolute Lymphs (auto) 1.8 (1.0-4.8) 10^3/ul Absolute Monos (auto) 0.4 (0-0.8) 10^3/ul Absolute Eos (auto) 0.1 (0-0.6) 10^3/ul Absolute Basos (auto) 0 (0-0.2) 10^3/ul Absolute Nucleated RBC 0.01 10^3/ul Nucleated RBC % 0.1 Sodium 134 (133-145) mmol/L Potassium 3.4 L (3.5-5.0) mmol/L Chloride 101 (101-111) mmol/L Carbon Dioxide 25 (22-32) mmol/L Anion Gap 8 (2-11) mmol/L BUN 17 (6-24) mg/dL Creatinine 0.97 (0.67-1.17) mg/dL Est GFR ( Amer) 94.8 (>60) Est GFR (Non-Af Amer) 73.7 (>60) BUN/Creatinine Ratio 17.5 (8-20) Glucose 119 H (70-100) mg/dL Lactic Acid 0.8 (0.5-2.0) mmol/L Calcium 9.4 (8.6-10.3) mg/dL Total Bilirubin 0.50 (0.2-1.0) mg/dL AST 30 (13-39) U/L ALT 46 (7-52) U/L Alkaline Phosphatase 42 (34-104) U/L Troponin I 0.03 (<0.04) ng/mL Total Protein 6.9 (6.4-8.9) g/dL Albumin 4.0 (3.2-5.2) g/dL Globulin 2.9 (2-4) g/dL Albumin/Globulin Ratio 1.4 (1-3) Urine Color Urine Appearance Urine pH (5-9) Ur Specific [place] (1.010-1.030) Urine Protein (Negative) Urine Ketones (Negative) Urine Blood (Negative) Urine Nitrate (Negative) Urine Bilirubin (Negative) Urine Urobilinogen (Negative) Ur Leukocyte Esterase (Negative) Urine Glucose (Negative) 08/18/16 Range/Units 19:40 WBC (3.5-10.8) 10^3/ul RBC (4.0-5.4) 10^6/ul Hgb (14.0-18.0) g/dl Hct (42-52) % MCV (80-94) fL MCH (27-31) pg MCHC (31-36) g/dl RDW (10.5-15) % Plt Count (150-450) 10^3/ul MPV (7.4-10.4) um3 Neut % (Auto) (38-83) % Lymph % (Auto) (25-47) % [place] % (Auto) (1-9) % Eos % (Auto) (0-6) % Baso % (Auto) (0-2) % Absolute Neuts (auto) (1.5-7.7) 10^3/ul Absolute Lymphs (auto) (1.0-4.8) 10^3/ul Absolute Monos (auto) (0-0.8) 10^3/ul Absolute Eos (auto) (0-0.6) 10^3/ul Absolute Basos (auto) (0-0.2) 10^3/ul Absolute Nucleated RBC 10^3/ul Nucleated RBC % Sodium (133-145) mmol/L Potassium (3.5-5.0) mmol/L Chloride (101-111) mmol/L Carbon Dioxide (22-32) mmol/L Anion Gap (2-11) mmol/L BUN (6-24) mg/dL Creatinine (0.67-1.17) mg/dL Est GFR ( Amer) (>60) Est GFR (Non-Af Amer) (>60) BUN/Creatinine Ratio (8-20) Glucose (70-100) mg/dL Lactic Acid (0.5-2.0) mmol/L Calcium (8.6-10.3) mg/dL Total Bilirubin (0.2-1.0) mg/dL AST (13-39) U/L ALT (7-52) U/L Alkaline Phosphatase (34-104) U/L Troponin I (<0.04) ng/mL Total Protein (6.4-8.9) g/dL Albumin (3.2-5.2) g/dL Globulin (2-4) g/dL Albumin/Globulin Ratio (1-3) Urine Color Yellow Urine Appearance Clear Urine pH 5.0 (5-9) Ur Specific [place] 1.012 (1.010-1.030) Urine Protein Negative (Negative) Urine Ketones Negative (Negative) Urine Blood Negative (Negative) Urine Nitrate Negative (Negative) Urine Bilirubin Negative (Negative) Urine Urobilinogen Negative (Negative) Ur Leukocyte Esterase Negative (Negative) Urine Glucose Negative (Negative) Assess/Plan/Problems-Billing Assessment: Mr. 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 Did have a positive Influenza test. Possible delirium from illness/Tamiflu. Confusion appears to be improving. - No leukocytosis, fevers. No PNA noted on CXR - Will likely need SOPHIA (2) NPH (normal pressure hydrocephalus) Current Visit: Yes Comment: The patient is s/p shunt placement. underwent shunt series in 02/2016 which appeared normal. (3) Dizziness Current Visit: Yes Comment: This has been an intermittent chronic symptom for patient. (4) HTN (hypertension) Current Visit: Yes Comment: Continue Coreg, Clonidine, Hydralazine, Ramipril. Hold Lasix. (5) Sleep apnea Current Visit: No Comment: Continue CPAP (6) DVT prophylaxis Current Visit: Yes Comment: HSQ Status and Disposition: inpatient with weakness and confusion thought to be secondary to Influenza. Pt would like to go to subacute rehab
[2016-08-20] MEDS: CMCS: Melatonin (NF) 3 MG TAB PO PRN (22:20)
[2016-08-21] MEDS: NS 0.9% 1000 ML* 1,000 ML IV SCH ×2 (02:42→15:11)
[2016-08-21] MEDS: Heparin VIAL(*) 5000 UNITS/ML VIAL (FIVE THOUSAND) SUBCUT SCH ×3 (06:59→21:44)
[2016-08-21] MEDS: Omeprazole CAP* 20 MG PO SCH (06:59)
[2016-08-21] MEDS: hydrALAZINE TAB* 25 MG PO SCH ×3 (07:56→20:25)
[2016-08-21] MEDS: Finasteride TAB* 5 MG PO SCH (07:56)
[2016-08-21] MEDS: Sucralfate TAB* 1 GM PO SCH ×3 (07:56→20:24)
[2016-08-21] MEDS: Carvedilol TAB* 25 MG PO SCH ×2 (07:56→17:45)
[2016-08-21] MEDS: Multivitamins/Minerals TAB PO SCH (07:56)
[2016-08-21] MEDS: Sertraline* 50 MG TAB PO SCH (07:56)
[2016-08-21] MEDS: cloNIDine TAB* 0.1 MG PO SCH ×3 (07:56→20:25)
[2016-08-21] MEDS: Montelukast Sodium TAB* 10 MG PO SCH (07:57)
[2016-08-21] MEDS: Ramipril CAP* 10 MG PO SCH ×2 (07:57→21:44)
[2016-08-21] MEDS ORDERED: Influenza VAC *QUAD* 2016-17* 0.5 ML SYRINGE IM ONE (09:00)
[2016-08-21] MEDS: Mometasone/Formoter 200/5 MDI INH SCH ×2 (09:09→20:14)
[2016-08-21] MEDS: Acetaminophen TAB* 325 MG PO PRN (09:26)
--- NOTE | 2016-08-21 14:13 | PN ---
Subjective Date of Service: 08/21/16 Interval History: Patient had dizziness and headache this morning, seems to have coincided with AM medications and drop in BP. Later in the day symptoms still present slightly but improved. No chest pain. Occasional SOB and cough. Family History: Unchanged from Admission Social History: Unchanged from Admission Past Medical History: Unchanged from Admission Objective Active Medications: Acetaminophen (Tylenol Tab*) 650 mg PO Q4H PRN PRN Reason: FEVER/PAIN Last Admin: 08/21/16 09:26 Dose: 650 mg Carvedilol (Coreg Tab*) 25 mg PO BID WITH MEALS [facility] Last Admin: 08/21/16 07:56 Dose: 25 mg Clonidine HCl (Catapres Tab*) 0.3 mg PO TID [facility] Last Admin: 08/21/16 07:56 Dose: 0.3 mg Finasteride (Proscar Tab*) 5 mg PO DAILY [facility] Last Admin: 08/21/16 07:56 Dose: 5 mg Guaifenesin (Robitussin*) 5 ml PO Q6H PRN PRN Reason: COUGH Last Admin: 08/19/16 16:01 Dose: 5 ml Heparin Sodium (Porcine) (Heparin Vial(*)) 5,000 units SUBCUT Q8HR [facility] Last Admin: 08/21/16 06:59 Dose: 5,000 units Hydralazine HCl (Apresoline Tab*) 50 mg PO TID [facility] Last Admin: 08/21/16 07:56 Dose: 50 mg Sodium Chloride (Ns 0.9% 1000 Ml*) 1,000 mls @ 75 mls/hr IV PER RATE [facility] Last Admin: 08/21/16 02:42 Dose: 75 mls/hr Melatonin (Melatonin (Nf)) 3 mg PO BEDTIME PRN; Protocol PRN Reason: Sleep Last Admin: 08/20/16 22:20 Dose: 3 mg Mometasone Furoate/Formoterol Fumar (Dulera 200/5 Mdi*) 2 puff INH BID [facility] PRN Reason: Protocol Last Admin: 08/21/16 09:09 Dose: 2 puff Montelukast Sodium (Singulair Tab*) 10 mg PO DAILY [facility] Last Admin: 08/21/16 07:57 Dose: 10 mg Multivitamins/Minerals (Theragran/Minerals Tab*) 1 tab PO DAILY [facility] Last Admin: 08/21/16 07:56 Dose: 1 tab Omeprazole (Prilosec Cap*) 20 mg PO DAILY@0730 [facility] Last Admin: 08/21/16 06:59 Dose: 20 mg Ramipril (Altace Cap*) 10 mg PO BID [facility] Last Admin: 08/21/16 07:57 Dose: 10 mg Sertraline HCl (Zoloft*) 50 mg PO DAILY [facility] Last Admin: 08/21/16 07:56 Dose: 50 mg Sucralfate (Carafate*) 1 gm PO TID [facility] Last Admin: 08/21/16 07:56 Dose: 1 gm Vital Signs 08/20/16 08/20/16 08/20/16 16:08 20:00 20:53 Temperature 98.1 F 97.8 F Pulse Rate 69 68 Respiratory 16 16 16 Rate Blood Pressure 139/61 189/78 (mmHg) O2 Sat by Pulse 96 96 Oximetry 08/21/16 08/21/16 08/21/16 05:26 07:42 08:00 Temperature 97.7 F Pulse Rate 70 70 Respiratory 16 16 20 Rate Blood Pressure 164/68 175/65 (mmHg) O2 Sat by Pulse 96 94 Oximetry 08/21/16 08/21/16 08/21/16 09:19 10:11 11:21 Temperature Pulse Rate 70 70 Respiratory 16 20 18 Rate Blood Pressure 112/61 102/57 138/51 (mmHg) O2 Sat by Pulse 97 96 96 Oximetry Oxygen Devices in Use Now: None Appearance: Elderly, M, sitting in bed in NAD Eyes: No Scleral Icterus Ears/Nose/Mouth/Throat: Mucous Membranes Moist Neck: NL Appearance and Movements; NL JVP Respiratory: Symmetrical Chest Expansion and Respiratory Effort, Clear to Auscultation Cardiovascular: NL Sounds; No Murmurs; No JVD, RRR Abdominal: NL Sounds; No Tenderness; No Distention Lymphatic: No Cervical Adenopathy Extremities: No Edema Skin: No Rash or Ulcers Neurological: - - Alert, oriented, no focal deficits Result Diagrams: 08/20/16 05:38 08/20/16 05:38 Additional Lab and Data: Lab Results 08/18/16 08/18/16 08/18/16 Range/Units 18:40 18:40 18:40 WBC 5.7 (3.5-10.8) 10^3/ul RBC 4.95 (4.0-5.4) 10^6/ul Hgb 15.1 (14.0-18.0) g/dl Hct 44 (42-52) % MCV 90 (80-94) fL MCH 31 (27-31) pg MCHC 34 (31-36) g/dl RDW 13 (10.5-15) % Plt Count 147 L (150-450) 10^3/ul MPV 7 L (7.4-10.4) um3 Neut % (Auto) 59.0 (38-83) % Lymph % (Auto) 31.5 (25-47) % [place] % (Auto) 7.3 (1-9) % Eos % (Auto) 1.5 (0-6) % Baso % (Auto) 0.7 (0-2) % Absolute Neuts (auto) 3.4 (1.5-7.7) 10^3/ul Absolute Lymphs (auto) 1.8 (1.0-4.8) 10^3/ul Absolute Monos (auto) 0.4 (0-0.8) 10^3/ul Absolute Eos (auto) 0.1 (0-0.6) 10^3/ul Absolute Basos (auto) 0 (0-0.2) 10^3/ul Absolute Nucleated RBC 0.01 10^3/ul Nucleated RBC % 0.1 Sodium 134 (133-145) mmol/L Potassium 3.4 L (3.5-5.0) mmol/L Chloride 101 (101-111) mmol/L Carbon Dioxide 25 (22-32) mmol/L Anion Gap 8 (2-11) mmol/L BUN 17 (6-24) mg/dL Creatinine 0.97 (0.67-1.17) mg/dL Est GFR ( Amer) 94.8 (>60) Est GFR (Non-Af Amer) 73.7 (>60) BUN/Creatinine Ratio 17.5 (8-20) Glucose 119 H (70-100) mg/dL Lactic Acid 0.8 (0.5-2.0) mmol/L Calcium 9.4 (8.6-10.3) mg/dL Total Bilirubin 0.50 (0.2-1.0) mg/dL AST 30 (13-39) U/L ALT 46 (7-52) U/L Alkaline Phosphatase 42 (34-104) U/L Troponin I 0.03 (<0.04) ng/mL Total Protein 6.9 (6.4-8.9) g/dL Albumin 4.0 (3.2-5.2) g/dL Globulin 2.9 (2-4) g/dL Albumin/Globulin Ratio 1.4 (1-3) Urine Color Urine Appearance Urine pH (5-9) Ur Specific [place] (1.010-1.030) Urine Protein (Negative) Urine Ketones (Negative) Urine Blood (Negative) Urine Nitrate (Negative) Urine Bilirubin (Negative) Urine Urobilinogen (Negative) Ur Leukocyte Esterase (Negative) Urine Glucose (Negative) 08/18/16 Range/Units 19:40 WBC (3.5-10.8) 10^3/ul RBC (4.0-5.4) 10^6/ul Hgb (14.0-18.0) g/dl Hct (42-52) % MCV (80-94) fL MCH (27-31) pg MCHC (31-36) g/dl RDW (10.5-15) % Plt Count (150-450) 10^3/ul MPV (7.4-10.4) um3 Neut % (Auto) (38-83) % Lymph % (Auto) (25-47) % [place] % (Auto) (1-9) % Eos % (Auto) (0-6) % Baso % (Auto) (0-2) % Absolute Neuts (auto) (1.5-7.7) 10^3/ul Absolute Lymphs (auto) (1.0-4.8) 10^3/ul Absolute Monos (auto) (0-0.8) 10^3/ul Absolute Eos (auto) (0-0.6) 10^3/ul Absolute Basos (auto) (0-0.2) 10^3/ul Absolute Nucleated RBC 10^3/ul Nucleated RBC % Sodium (133-145) mmol/L Potassium (3.5-5.0) mmol/L Chloride (101-111) mmol/L Carbon Dioxide (22-32) mmol/L Anion Gap (2-11) mmol/L BUN (6-24) mg/dL Creatinine (0.67-1.17) mg/dL Est GFR ( Amer) (>60) Est GFR (Non-Af Amer) (>60) BUN/Creatinine Ratio (8-20) Glucose (70-100) mg/dL Lactic Acid (0.5-2.0) mmol/L Calcium (8.6-10.3) mg/dL Total Bilirubin (0.2-1.0) mg/dL AST (13-39) U/L ALT (7-52) U/L Alkaline Phosphatase (34-104) U/L Troponin I (<0.04) ng/mL Total Protein (6.4-8.9) g/dL Albumin (3.2-5.2) g/dL Globulin (2-4) g/dL Albumin/Globulin Ratio (1-3) Urine Color Yellow Urine Appearance Clear Urine pH 5.0 (5-9) Ur Specific [place] 1.012 (1.010-1.030) Urine Protein Negative (Negative) Urine Ketones Negative (Negative) Urine Blood Negative (Negative) Urine Nitrate Negative (Negative) Urine Bilirubin Negative (Negative) Urine Urobilinogen Negative (Negative) Ur Leukocyte Esterase Negative (Negative) Urine Glucose Negative (Negative) Microbiology and Other Data: Microbiology 08/20/16 05:38 Aerobic Blood Culture - Preliminary Blood Venous No Growth Day 1 Anaerobic Blood Culture - Preliminary No Growth Day 1 08/20/16 05:38 Aerobic Blood Culture - Preliminary Blood Venous No Growth Day 1 Anaerobic Blood Culture - Preliminary No Growth Day 1 Assess/Plan/Problems-Billing Assessment: Mr. 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 Will try to re-arrange medications to avoid this. (2) Weakness Current Visit: Yes Comment: - weakness and confusion, suspect secondary to Influenza. Did have a positive Influenza test. Possible delirium from illness/Tamiflu. Confusion appears to be improving. - No leukocytosis, fevers. No PNA noted on CXR - Will likely need SOPHIA (3) NPH (normal pressure hydrocephalus) Current Visit: Yes Comment: The patient is s/p shunt placement. underwent shunt series in 02/2016 which appeared normal. (4) HTN (hypertension) Current Visit: Yes Comment: Continue Coreg (will change timiring to 7 AM and 7 PM), Clonidine, Hydralazine, Ramipril (change timing to 10 AM and 10 PM). Holding Lasix. (5) Sleep apnea Current Visit: No Comment: Continue CPAP (6) DVT prophylaxis Current Visit: Yes Comment: HSQ Status and Disposition: inpatient with weakness and confusion thought to be secondary to Influenza. Plan for SOPHIA 08/22
[2016-08-21] MEDS: CMCS: Melatonin (NF) 3 MG TAB PO PRN (23:12)
[2016-08-22] MEDS: NS 0.9% 1000 ML* 1,000 ML IV SCH (04:26)
[2016-08-22] MEDS: Carvedilol TAB* 25 MG PO SCH ×2 (06:12→17:33)
[2016-08-22] MEDS: Heparin VIAL(*) 5000 UNITS/ML VIAL (FIVE THOUSAND) SUBCUT SCH ×3 (06:12→21:32)
[2016-08-22 07:20] LABS: BUN/Creatinine Ratio 14.3 (8-20); EGFR African American 123.8 (>60); EGFR Non-African American 96.2 (>60); Potassium 3.5 mmol/L (3.5-5.0)
[2016-08-22] MEDS: cloNIDine TAB* 0.1 MG PO SCH ×3 (09:04→21:32)
[2016-08-22] MEDS: Sertraline* 50 MG TAB PO SCH (09:04)
[2016-08-22] MEDS: Omeprazole CAP* 20 MG PO SCH (09:04)
[2016-08-22] MEDS: Finasteride TAB* 5 MG PO SCH (09:05)
[2016-08-22] MEDS: Sucralfate TAB* 1 GM PO SCH ×3 (09:05→21:33)
[2016-08-22] MEDS: Multivitamins/Minerals TAB PO SCH (09:05)
[2016-08-22] MEDS: Montelukast Sodium TAB* 10 MG PO SCH (09:05)
[2016-08-22] MEDS: hydrALAZINE TAB* 25 MG PO SCH ×3 (09:05→21:33)
[2016-08-22] MEDS: Acetaminophen TAB* 325 MG PO PRN ×2 (10:32→19:34)
[2016-08-22] MEDS: Ramipril CAP* 10 MG PO SCH ×2 (10:32→21:33)
[2016-08-22] MEDS ORDERED: Docusate CAP* 100 MG PO ONE (10:37)
[2016-08-22] MEDS ORDERED: Polyethylene Glycol 3350* 17 GM PACKET PO PRN (10:37)
[2016-08-22] MEDS ORDERED: Senna TAB PO ONE (10:37)
[2016-08-22] MEDS: Mometasone/Formoter 200/5 MDI INH SCH ×2 (10:54→19:47)
[2016-08-22] MEDS: Meclizine TAB* 12.5 MG PO SCH ×2 (15:34→21:33)
--- NOTE | 2016-08-22 16:31 | PN ---
Subjective Date of Service: 08/22/16 Interval History: Patient seen this morning and spoke with a number of times today. Patient reports that he is still feeling dizzy however was somewhat improved from yesterday. BPs did not take such a significant drop this AM after meds. states that he seemed more dizzy than usual. Wants him to go to [facility] however there is a respiratory infection running through the facility, hoping she can take him home for a few days first. Family History: Unchanged from Admission Social History: Unchanged from Admission Past Medical History: Unchanged from Admission Objective Active Medications: Acetaminophen (Tylenol Tab*) 650 mg PO Q4H PRN Carvedilol (Coreg Tab*) 25 mg PO Q12H MIKE Clonidine HCl (Catapres Tab*) 0.3 mg PO TID MIKE Finasteride (Proscar Tab*) 5 mg PO DAILY MIKE Guaifenesin (Robitussin*) 5 ml PO Q6H PRN Heparin Sodium (Porcine) (Heparin Vial(*)) 5,000 units SUBCUT Q8HR MIKE Hydralazine HCl (Apresoline Tab*) 50 mg PO TID MIKE Sodium Chloride (Ns 0.9% 1000 Ml*) 1,000 mls @ 75 mls/hr IV PER RATE MIKE Meclizine HCl (Antivert Tab*) 12.5 mg PO Q8HR MIKE Mometasone Furoate/Formoterol Fumar (Dulera 200/5 Mdi*) 2 puff INH BID MIKE Montelukast Sodium (Singulair Tab*) 10 mg PO DAILY MIKE Multivitamins/Minerals (Theragran/Minerals Tab*) 1 tab PO DAILY MIKE Omeprazole (Prilosec Cap*) 20 mg PO DAILY@0730 MIKE Polyethylene Glycol/Electrolytes (Miralax*) 17 gm PO DAILY PRN Ramipril (Altace Cap*) 10 mg PO Q12H MIKE Sertraline HCl (Zoloft*) 50 mg PO DAILY MIKE Sucralfate (Carafate*) 1 gm PO TID MIKE Vital Signs 08/21/16 08/21/16 08/21/16 17:33 18:30 19:17 Temperature 97.3 F Pulse Rate 70 70 Respiratory 14 18 Rate Blood Pressure 217/85 158/72 156/76 (mmHg) O2 Sat by Pulse 98 98 Oximetry 01/08/21/16 08/21/16 20:00 20:05 22:00 Temperature Pulse Rate 69 Respiratory 18 19 Rate Blood Pressure 200/80 166/78 (mmHg) O2 Sat by Pulse Oximetry 08/21/16 08/22/16 08/22/16 23:52 07:33 08:00 Temperature 97.6 F 97.5 F Pulse Rate 70 70 Respiratory 16 16 Rate Blood Pressure 179/67 141/64 (mmHg) O2 Sat by Pulse 96 98 Oximetry 08/22/16 08/22/16 08/22/16 10:26 11:29 13:46 Temperature Pulse Rate 70 Respiratory Rate Blood Pressure 132/62 139/66 153/72 (mmHg) O2 Sat by Pulse 98 Oximetry Oxygen Devices in Use Now: None Appearance: Elderly, M, laying in bed in NAD Eyes: No Scleral Icterus Ears/Nose/Mouth/Throat: Mucous Membranes Moist Neck: NL Appearance and Movements; NL JVP Respiratory: Symmetrical Chest Expansion and Respiratory Effort, Clear to Auscultation Cardiovascular: NL Sounds; No Murmurs; No JVD, RRR Abdominal: NL Sounds; No Tenderness; No Distention Lymphatic: No Cervical Adenopathy Extremities: No Edema Skin: No Rash or Ulcers Neurological: - - Alert, short term memory problems Result Diagrams: 08/20/16 05:38 08/22/16 06:09 Additional Lab and Data: Lab Results 08/18/16 08/18/16 08/18/16 Range/Units 18:40 18:40 18:40 WBC 5.7 (3.5-10.8) 10^3/ul RBC 4.95 (4.0-5.4) 10^6/ul Hgb 15.1 (14.0-18.0) g/dl Hct 44 (42-52) % MCV 90 (80-94) fL MCH 31 (27-31) pg MCHC 34 (31-36) g/dl RDW 13 (10.5-15) % Plt Count 147 L (150-450) 10^3/ul MPV 7 L (7.4-10.4) um3 Neut % (Auto) 59.0 (38-83) % Lymph % (Auto) 31.5 (25-47) % [place] % (Auto) 7.3 (1-9) % Eos % (Auto) 1.5 (0-6) % Baso % (Auto) 0.7 (0-2) % Absolute Neuts (auto) 3.4 (1.5-7.7) 10^3/ul Absolute Lymphs (auto) 1.8 (1.0-4.8) 10^3/ul Absolute Monos (auto) 0.4 (0-0.8) 10^3/ul Absolute Eos (auto) 0.1 (0-0.6) 10^3/ul Absolute Basos (auto) 0 (0-0.2) 10^3/ul Absolute Nucleated RBC 0.01 10^3/ul Nucleated RBC % 0.1 Sodium 134 (133-145) mmol/L Potassium 3.4 L (3.5-5.0) mmol/L Chloride 101 (101-111) mmol/L Carbon Dioxide 25 (22-32) mmol/L Anion Gap 8 (2-11) mmol/L BUN 17 (6-24) mg/dL Creatinine 0.97 (0.67-1.17) mg/dL Est GFR ( Amer) 94.8 (>60) Est GFR (Non-Af Amer) 73.7 (>60) BUN/Creatinine Ratio 17.5 (8-20) Glucose 119 H (70-100) mg/dL Lactic Acid 0.8 (0.5-2.0) mmol/L Calcium 9.4 (8.6-10.3) mg/dL Total Bilirubin 0.50 (0.2-1.0) mg/dL AST 30 (13-39) U/L ALT 46 (7-52) U/L Alkaline Phosphatase 42 (34-104) U/L Troponin I 0.03 (<0.04) ng/mL Total Protein 6.9 (6.4-8.9) g/dL Albumin 4.0 (3.2-5.2) g/dL Globulin 2.9 (2-4) g/dL Albumin/Globulin Ratio 1.4 (1-3) Urine Color Urine Appearance Urine pH (5-9) Ur Specific [place] (1.010-1.030) Urine Protein (Negative) Urine Ketones (Negative) Urine Blood (Negative) Urine Nitrate (Negative) Urine Bilirubin (Negative) Urine Urobilinogen (Negative) Ur Leukocyte Esterase (Negative) Urine Glucose (Negative) 08/18/16 Range/Units 19:40 WBC (3.5-10.8) 10^3/ul RBC (4.0-5.4) 10^6/ul Hgb (14.0-18.0) g/dl Hct (42-52) % MCV (80-94) fL MCH (27-31) pg MCHC (31-36) g/dl RDW (10.5-15) % Plt Count (150-450) 10^3/ul MPV (7.4-10.4) um3 Neut % (Auto) (38-83) % Lymph % (Auto) (25-47) % [place] % (Auto) (1-9) % Eos % (Auto) (0-6) % Baso % (Auto) (0-2) % Absolute Neuts (auto) (1.5-7.7) 10^3/ul Absolute Lymphs (auto) (1.0-4.8) 10^3/ul Absolute Monos (auto) (0-0.8) 10^3/ul Absolute Eos (auto) (0-0.6) 10^3/ul Absolute Basos (auto) (0-0.2) 10^3/ul Absolute Nucleated RBC 10^3/ul Nucleated RBC % Sodium (133-145) mmol/L Potassium (3.5-5.0) mmol/L Chloride (101-111) mmol/L Carbon Dioxide (22-32) mmol/L Anion Gap (2-11) mmol/L BUN (6-24) mg/dL Creatinine (0.67-1.17) mg/dL Est GFR ( Amer) (>60) Est GFR (Non-Af Amer) (>60) BUN/Creatinine Ratio (8-20) Glucose (70-100) mg/dL Lactic Acid (0.5-2.0) mmol/L Calcium (8.6-10.3) mg/dL Total Bilirubin (0.2-1.0) mg/dL AST (13-39) U/L ALT (7-52) U/L Alkaline Phosphatase (34-104) U/L Troponin I (<0.04) ng/mL Total Protein (6.4-8.9) g/dL Albumin (3.2-5.2) g/dL Globulin (2-4) g/dL Albumin/Globulin Ratio (1-3) Urine Color Yellow Urine Appearance Clear Urine pH 5.0 (5-9) Ur Specific [place] 1.012 (1.010-1.030) Urine Protein Negative (Negative) Urine Ketones Negative (Negative) Urine Blood Negative (Negative) Urine Nitrate Negative (Negative) Urine Bilirubin Negative (Negative) Urine Urobilinogen Negative (Negative) Ur Leukocyte Esterase Negative (Negative) Urine Glucose Negative (Negative) Microbiology and Other Data: Microbiology 08/20/16 05:38 Aerobic Blood Culture - Preliminary Blood Venous No Growth Day 1 Anaerobic Blood Culture - Preliminary No Growth Day 1 08/20/16 05:38 Aerobic Blood Culture - Preliminary Blood Venous No Growth Day 1 Anaerobic Blood Culture - Preliminary No Growth Day 1 Assess/Plan/Problems-Billing Assessment: Mr. Solorio is a 86 yo male with a PMH of HTN, KATHY with CPAP, GERD, NPH s/p [employer] shunt, pacemaker who was recently diagnosed with influenza presents with weakness and confusion in the setting of starting Tamiflu - Patient Problems (1) Dizziness Current Visit: Yes Comment: Possibly some improvement today, will keep current BP regimen and timing (2) Weakness Current Visit: Yes Comment: - weakness and confusion, suspect secondary to Influenza. Did have a positive Influenza test. Possible delirium from illness/Tamiflu. Confusion appears to be improving. - No leukocytosis, fevers. No PNA noted on CXR - Will likely need SOPHIA (3) NPH (normal pressure hydrocephalus) Current Visit: Yes Comment: The patient is s/p shunt placement. underwent shunt series in 02/2016 which appeared normal. (4) HTN (hypertension) Current Visit: Yes Comment: Continue Coreg (will change timiring to 7 AM and 7 PM), Clonidine, Hydralazine, Ramipril (change timing to 10 AM and 10 PM). Holding Lasix. (5) Sleep apnea Current Visit: No Comment: Continue CPAP (6) DVT prophylaxis Current Visit: Yes Comment: HSQ Status and Disposition: inpatient with weakness and confusion thought to be secondary to Influenza. Plan for SOPHIA vs home
[2016-08-23] MEDS: Meclizine TAB* 12.5 MG PO SCH ×3 (06:06→21:53)
[2016-08-23] MEDS: Carvedilol TAB* 25 MG PO SCH ×2 (06:06→19:55)
[2016-08-23] MEDS: Heparin VIAL(*) 5000 UNITS/ML VIAL (FIVE THOUSAND) SUBCUT SCH ×3 (06:06→21:53)
[2016-08-23] MEDS: Mometasone/Formoter 200/5 MDI INH SCH ×2 (09:21→20:06)
[2016-08-23] MEDS: cloNIDine TAB* 0.1 MG PO SCH ×3 (09:29→21:53)
[2016-08-23] MEDS: hydrALAZINE TAB* 25 MG PO SCH ×3 (09:29→21:53)
[2016-08-23] MEDS: Multivitamins/Minerals TAB PO SCH (09:30)
[2016-08-23] MEDS: Montelukast Sodium TAB* 10 MG PO SCH (09:30)
[2016-08-23] MEDS: Finasteride TAB* 5 MG PO SCH (09:30)
[2016-08-23] MEDS: Omeprazole CAP* 20 MG PO SCH (09:30)
[2016-08-23] MEDS: Sucralfate TAB* 1 GM PO SCH ×3 (09:31→21:53)
[2016-08-23] MEDS: Sertraline* 50 MG TAB PO SCH (09:31)
[2016-08-23] MEDS: Ramipril CAP* 10 MG PO SCH ×2 (09:31→21:53)
--- NOTE | 2016-08-23 11:34 | PN ---
Subjective Date of Service: 08/23/16 Interval History: Patient seen and examined at bedside. Pt states that he continues to have dizziness, be feels slight improvement. Denies fever, chills, shortness of breath, chest discomfort, N/V/D. Family History: Unchanged from Admission Social History: Unchanged from Admission Past Medical History: Unchanged from Admission Objective Active Medications: Acetaminophen (Tylenol Tab*) 650 mg PO Q4H PRN Reason: FEVER/PAIN Carvedilol (Coreg Tab*) 25 mg PO Q12H MIKE Clonidine HCl (Catapres Tab*) 0.3 mg PO TID MIKE Finasteride (Proscar Tab*) 5 mg PO DAILY MIKE Guaifenesin (Robitussin*) 5 ml PO Q6H PRN Reason: COUGH Heparin Sodium (Porcine) (Heparin Vial(*)) 5,000 units SUBCUT Q8HR MIKE Hydralazine HCl (Apresoline Tab*) 50 mg PO TID MIKE Meclizine HCl (Antivert Tab*) 12.5 mg PO Q8HR MIKE Melatonin (Melatonin (Nf)) 3 mg PO BEDTIME PRN Reason: Sleep Mometasone Furoate/Formoterol Fumar (Dulera 200/5 Mdi*) 2 puff INH BID SC Montelukast Sodium (Singulair Tab*) 10 mg PO DAILY [facility] Multivitamins/Minerals (Theragran/Minerals Tab*) 1 tab PO DAILY MIKE Omeprazole (Prilosec Cap*) 20 mg PO DAILY@0730 [facility] Polyethylene Glycol/Electrolytes (Miralax*) 17 gm PO DAILY PRN Reason: CONSTIPATION Ramipril (Altace Cap*) 10 mg PO Q12H MIKE Sertraline HCl (Zoloft*) 50 mg PO DAILY [facility] Sucralfate (Carafate*) 1 gm PO TID MIKE Vital Signs 08/22/16 08/22/16 08/22/16 13:46 19:52 20:00 Temperature 98.1 F Pulse Rate 192 Respiratory 16 16 Rate Blood Pressure 153/72 154/63 (mmHg) O2 Sat by Pulse 96 Oximetry 08/22/16 08/22/16 08/23/16 20:30 23:15 07:34 Temperature 97.6 F Pulse Rate 76 98 70 Respiratory 16 18 Rate Blood Pressure 168/74 170/85 (mmHg) O2 Sat by Pulse 100 98 Oximetry 08/23/16 09:22 Temperature Pulse Rate 72 Respiratory 16 Rate Blood Pressure (mmHg) O2 Sat by Pulse 97 Oximetry Oxygen Devices in Use Now: None Appearance: NAD, laying in bed. Eyes: No Scleral Icterus, PERRLA Ears/Nose/Mouth/Throat: NL Teeth, Lips, Gums, Mucous Membranes Moist, - - Unable to visualize TM bilateral, due to cerumen in auditory canals Neck: NL Appearance and Movements; NL JVP, Trachea Midline Respiratory: Symmetrical Chest Expansion and Respiratory Effort, Clear to Auscultation Cardiovascular: NL Sounds; No Murmurs; No JVD, RRR Abdominal: NL Sounds; No Tenderness; No Distention - Bowel sounds present Extremities: No Edema Skin: No Rash or Ulcers Neurological: NL Gait, NL Muscle Strength and Tone, - - Alert and Oriented to Person and Place, states year is 1999 Result Diagrams: 08/20/16 05:38 08/22/16 06:09 Additional Lab and Data: Microbiology and Other Data: Microbiology 08/20/16 05:38 Aerobic Blood Culture - Preliminary Blood Venous No Growth Day 1 Anaerobic Blood Culture - Preliminary No Growth Day 1 08/20/16 05:38 Aerobic Blood Culture - Preliminary Blood Venous No Growth Day 1 Anaerobic Blood Culture - Preliminary No Growth Day 1 Assess/Plan/Problems-Billing Assessment: Mr. 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 - weakness and confusion, suspect secondary to Influenza. Did have a positive Influenza test. Possible delirium from illness/Tamiflu. - No leukocytosis, fevers. No PNA noted on CXR (3) HTN (hypertension) Code(s): I10 - ESSENTIAL (PRIMARY) HYPERTENSION SNOMED Code(s): 10764899 Comment: - SBP 130-170's - Continue Coreg (7 AM and 7 PM), Clonidine, Hydralazine, Ramipril (10 AM and 10 PM). - Holding Lasix. (4) NPH (normal pressure hydrocephalus) Code(s): G91.2 - (IDIOPATHIC) NORMAL PRESSURE HYDROCEPHALUS SNOMED Code(s): 39614256 Comment: - The patient is s/p shunt placement. - Underwent shunt series in 02/2016 which appeared normal. (5) Sleep apnea Code(s): G47.30 - SLEEP APNEA, UNSPECIFIED SNOMED Code(s): 16140560 Comment: Continue CPAP (6) DVT prophylaxis Code(s): XCF1771 - SNOMED Code(s): 770347454 Comment: SQ heparin (7) Full code status Status and Disposition: Inpatient with weakness and confusion thought to be secondary to Influenza. Plan for discharge to [facility] tomorrow.
[2016-08-23] MEDS: Acetaminophen TAB* 325 MG PO PRN (19:55)
--- NOTE | 2016-08-23 21:00 | DS ---
DISCHARGE SUMMARY: DATE OF ADMISSION: 08/19/16 DATE OF DISCHARGE: 08/24/16 ATTENDING PHYSICIAN: Dr. Lc Paulino *(dictated by Radha Dunaway NP). PRIMARY CARE PROVIDER: Dr. Ramon Walker PRIMARY DIAGNOSES: 1. Delirium, suspect related to Tamiflu. 2. Dizziness. SECONDARY DIAGNOSES: 1. Hypertension. 2. Depression. 3. Benign prostatic hypertrophy. 4. Gastroesophageal reflux disease. 5. Normal pressure hydrocephalus. STUDIES WHILE IN THE HOSPITAL: 1. Chest x-ray on 08/18/16. Radiologist's impression: Pacemaker leads in place, no pneumothorax or pneumonia is noted. 2. Brain CT on 08/19/16. Radiologist's impression: No change in ventricular size or appearance of ventriculostomy catheter. Chronic microvascular ischemic changes. DISCHARGE MEDICATIONS: New medications: 1. Acetaminophen 650 mg oral every 4 hours as needed for fever or pain. 2. Meclizine 12.5 mg oral every 8 hours. 3. MiraLAX 17 g oral daily as needed for constipation. Continued home medications: 1. Ramipril 10 mg oral twice daily. 2. Sertraline 50 mg oral daily. 3. Omeprazole 20 mg oral daily. 4. Coreg 25 mg oral twice daily. 5. Carafate 1 g oral 3 times daily. 6. Clonidine 0.3 mg oral 3 times daily. 7. Finasteride 5 mg oral daily. 8. Melatonin 10 mg oral daily at bedtime. 9. Hydralazine 50 mg oral 3 times daily. 10. Symbicort 160/4.5 two puffs inhalation twice daily. 11. Multivitamin 1 tablet oral daily. 12. Glucosamine and chondroitin 1 tablet oral twice daily. 13. Singulair 10 mg oral daily. 14. Furosemide 40 mg oral daily. HISTORY OF PRESENT ILLNESS/HOSPITAL COURSE: Mr. Solorio is an 86-year-old male who recently went on a cruise and presented to the hospital for further evaluation with his . Apparently, the patient was diagnosed with influenza while he was on his cruise. He was started on Tamiflu and approximately a day after starting the Tamiflu, the patient became weak and more confused. The patient was reported to not being eating or drinking well and he was having hallucinations, feeling that there were extra beds in the room and more people in the bedroom. The patient continued to be confused, but this had improved slightly. The patient had no physical complaints such as chest pain, shortness of breath, abdominal pain, nausea, vomiting, diarrhea, increased frequency of urination or pain with urination. While in the emergency room, the patient had a urinalysis that was unremarkable. He also had a chemistry that was remarkable for creatinine of 1.97. The patient's CBC was unremarkable. The patient had a brain CT showing no changes in ventricular size or appearance of the ventriculostomy catheter and chronic microvascular ischemic changes. The patient also had a chest x-ray showing no acute findings for pneumonia. The patient also had an EKG showing normal sinus rhythm. Based off the patient's presentation with confusion and weakness, the hospitalists were asked to evaluate the patient for admission. During the patient's stay, it was felt that he had delirium, most likely secondary to the Tamiflu he had been placed on while on the cruise as delirium is a side effect of Tamiflu. The patient was also felt to be dehydrated, possibly while he was on the cruise and in an unfamiliar place. The patient was hydrated with normal saline. The patient's diuretics were held. During the patient's stay, he continued to improve with his cognition with his confusion improving. The patient had no leukocytosis or fevers. The patient began complaining of dizziness, stating that he possibly had some improvement. He was started on meclizine and had his blood pressure medication regime adjusted. According to the patient's family, dizziness has been a chronic complaint of the patient for several years. As far as the patient's hypertension, his systolic blood pressures have been fairly controlled. His antihypertensives were adjusted to Coreg 7 a.m. and 7 p.m. with clonidine, hydralazine, and ramipril at 10 a.m. and 10 p.m. and the patient had his Lasix held. The patient had a history of sleep apnea, was continued on his CPAP during his stay. Although the patient continued to complain of dizziness, the patient had a steady gait and was able to ambulate with a standby assist and a walker. For the patient's BPH, he was continued on finasteride. During the patient's stay, his hypokalemia resolved. He has remained afebrile with no leukocytosis. Plans were made for the patient to go to [facility]. Mr. Solorio is stable for discharge to [facility]. Vital signs are as follows: Temperature 97.6, heart rate 69, respiratory rate 16, O2 sat 96% on room air, blood pressure 187/71. DISCHARGE PLAN: Mr. Solorio will be discharged to [facility] in the morning on August 24. He should be activity as tolerated with a regular diet. As far as the patient's medications, he should be continued on Coreg, Altace, clonidine, and hydralazine for hypertension. His Lasix has also been restarted as he has continued to be hypertensive. For the patient's complaints of dizziness, he has been started on meclizine. For the patient's GERD, he should be continued on his omeprazole. For the patient's history of BPH, he should be continued on finasteride. I recommend trailing his finasteride at bedtime, to see if this helps with the dizziness. If the patient continues to complain of dizziness, I would consider stopping the patient's finasteride as this could be contributing to his dizziness. The patient's blood pressures should be further monitored and his antihypertensives adjusted as needed as he has intermittently been hypertensive during his hospital stay. The patient should follow with his primary care provider, Dr. Ramon Walker, or a provider at [facility] per [facility]'s protocol. The patient should return to the emergency room for shortness of breath or chest discomfort. This is a summarized report of a complex medical history and hospital stay. For further details, please see the entire medical record. TIME SPENT: Time for this discharge was 50 minutes, 25 minutes were spent face-to- face with the patient discussing discharge plans and instructions. CONDITION ON DISCHARGE: Stable. Reviewed by STEFAN VARGAS 08/24/16 0908 CC: Ramon Walker MD * [id number]/[facility] #: [id number] ANNA
[2016-08-24] MEDS: Heparin VIAL(*) 5000 UNITS/ML VIAL (FIVE THOUSAND) SUBCUT SCH (06:03)
[2016-08-24] MEDS: Carvedilol TAB* 25 MG PO SCH (06:03)
[2016-08-24] MEDS: Meclizine TAB* 12.5 MG PO SCH (06:03)
[2016-08-24] MEDS ORDERED: Furosemide TAB* 40 MG PO SCH (09:00)
[2016-08-24] MEDS: Mometasone/Formoter 200/5 MDI INH SCH (09:09)
[2016-08-24] MEDS: Finasteride TAB* 5 MG PO SCH (09:53)
[2016-08-24] MEDS: Omeprazole CAP* 20 MG PO SCH (09:53)
[2016-08-24] MEDS: Ramipril CAP* 10 MG PO SCH (09:53)
[2016-08-24] MEDS: Multivitamins/Minerals TAB PO SCH (09:53)
[2016-08-24] MEDS: hydrALAZINE TAB* 25 MG PO SCH (09:54)
[2016-08-24] MEDS: cloNIDine TAB* 0.1 MG PO SCH (09:54)
[2016-08-24] MEDS: Sucralfate TAB* 1 GM PO SCH (09:54)
[2016-08-24] MEDS: Sertraline* 50 MG TAB PO SCH (09:54)
[2016-08-24] MEDS: Montelukast Sodium TAB* 10 MG PO SCH (09:54)
[2016-08-24 10:16] VITALS: BP 137/73
--- NOTE | 2016-08-24 10:19 | PN ---
Subjective Date of Service: 08/24/16 Interval History: Patient seen and examined at bedside. Pt states that he feels well this AM. Reports that he continues to have dizziness, but feels that it is improved. Denies fever, chills, shortness of breath, chest discomfort, N/V/D. Family History: Unchanged from Admission Social History: Unchanged from Admission Past Medical History: Unchanged from Admission Objective Active Medications: Acetaminophen (Tylenol Tab*) 650 mg PO Q4H PRN Reason: FEVER/PAIN Carvedilol (Coreg Tab*) 25 mg PO Q12H MIKE Clonidine HCl (Catapres Tab*) 0.3 mg PO TID MIKE Finasteride (Proscar Tab*) 5 mg PO DAILY [facility] Furosemide (Lasix Tab*) 40 mg PO DAILY [facility] Guaifenesin (Robitussin*) 5 ml PO Q6H PRN Reason: COUGH Heparin Sodium (Porcine) (Heparin Vial(*)) 5,000 units SUBCUT Q8HR [facility] Hydralazine HCl (Apresoline Tab*) 50 mg PO TID MIKE Meclizine HCl (Antivert Tab*) 12.5 mg PO Q8HR MIKE Melatonin (Melatonin (Nf)) 3 mg PO BEDTIME PRN; Protocol Reason: Sleep Mometasone Furoate/Formoterol Fumar (Dulera 200/5 Mdi*) 2 puff INH BID MIKE Montelukast Sodium (Singulair Tab*) 10 mg PO DAILY [facility] Multivitamins/Minerals (Theragran/Minerals Tab*) 1 tab PO DAILY MIKE Omeprazole (Prilosec Cap*) 20 mg PO DAILY@0730 [facility] Polyethylene Glycol/Electrolytes (Miralax*) 17 gm PO DAILY PRN Reason: CONSTIPATION Ramipril (Altace Cap*) 10 mg PO Q12H MIKE Sertraline HCl (Zoloft*) 50 mg PO DAILY [facility] Sucralfate (Carafate*) 1 gm PO TID MIKE Vital Signs 08/23/16 08/23/16 08/23/16 15:34 20:00 23:40 Temperature 97.9 F Pulse Rate 69 70 Respiratory 16 18 20 Rate Blood Pressure 187/71 176/71 (mmHg) O2 Sat by Pulse 96 93 Oximetry 08/24/16 09:10 Temperature Pulse Rate 68 Respiratory 14 Rate Blood Pressure (mmHg) O2 Sat by Pulse 98 Oximetry Oxygen Devices in Use Now: None Appearance: NAD, sitting up on the side of the bed. Eyes: No Scleral Icterus, PERRLA Ears/Nose/Mouth/Throat: NL Teeth, Lips, Gums, Mucous Membranes Moist Neck: NL Appearance and Movements; NL JVP, Trachea Midline Respiratory: Symmetrical Chest Expansion and Respiratory Effort, Clear to Auscultation Cardiovascular: NL Sounds; No Murmurs; No JVD, RRR Abdominal: NL Sounds; No Tenderness; No Distention - Bowel sounds present Extremities: No Edema Skin: No Rash or Ulcers Neurological: Alert and Oriented x 3 - , some confusion, NL Muscle Strength and Tone Lines/Tubes/Other Access: Clean, Dry and Intact Peripheral IV - site benign. Nutrition: Taking PO's Result Diagrams: 08/20/16 05:38 08/22/16 06:09 Additional Lab and Data: Microbiology and Other Data: Microbiology 08/20/16 05:38 Aerobic Blood Culture - Preliminary Blood Venous No Growth Day 1 Anaerobic Blood Culture - Preliminary No Growth Day 1 08/20/16 05:38 Aerobic Blood Culture - Preliminary Blood Venous No Growth Day 1 Anaerobic Blood Culture - Preliminary No Growth Day 1 Assess/Plan/Problems-Billing Assessment: Mr. 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 - weakness and confusion, suspect secondary to Influenza. Did have a positive Influenza test. Possible delirium from illness/Tamiflu. - No leukocytosis, fevers. No PNA noted on CXR (3) HTN (hypertension) Code(s): I10 - ESSENTIAL (PRIMARY) HYPERTENSION SNOMED Code(s): 19565349 Comment: - SBP 130-180's - Continue Coreg (7 AM and 7 PM), Clonidine, Hydralazine, Ramipril (10 AM and 10 PM). - Resume Lasix. (4) NPH (normal pressure hydrocephalus) Code(s): G91.2 - (IDIOPATHIC) NORMAL PRESSURE HYDROCEPHALUS SNOMED Code(s): 87765502 Comment: - The patient is s/p shunt placement. - Underwent shunt series in 02/2016 which appeared normal. (5) Sleep apnea Code(s): G47.30 - SLEEP APNEA, UNSPECIFIED SNOMED Code(s): 36992333 Comment: Continue CPAP (6) DVT prophylaxis Code(s): RBW4654 - SNOMED Code(s): 535094127 (7) Full code status Status and Disposition: Inpatient with weakness and confusion thought to be secondary to Influenza. Stable for discharge to [facility] Today.
== END 2016-08-24 10:45 | disposition home or self-care (01) | DRG 948 ==
LOC: ED 14:19 → MEDTELE 08-19 02:12 → MED 08-20 20:22
PROVIDERS: ADMIT Internal Medicine; ATTEND Internal Medicine
DX: R41.0 Disorientation, unspecified (principal); G91.2 (Idiopathic) normal pressure hydrocephalus; E86.0 Dehydration; T37.5X5A Adverse effect of antiviral drugs, initial encounter; J11.1 Influenza due to unidentified influenza virus with other respiratory manifestations; E87.6 Hypokalemia; R53.1 Weakness; I10 Essential (primary) hypertension; F32.9 Major depressive disorder, single episode, unspecified; N40.0 Benign prostatic hyperplasia without lower urinary tract symptoms; K21.9 Gastro-esophageal reflux disease without esophagitis; G47.33 Obstructive sleep apnea (adult) (pediatric); J45.909 Unspecified asthma, uncomplicated; Z95.0 Presence of cardiac pacemaker; Z88.6 Allergy status to analgesic agent; Z80.0 Family history of malignant neoplasm of digestive organs; Z80.1 Family history of malignant neoplasm of trachea, bronchus and lung; Z79.899 Other long term (current) drug therapy; Z98.2 Presence of cerebrospinal fluid drainage device; Y92.89 Other specified places as the place of occurrence of the external cause; X58.XXXA Exposure to other specified factors, initial encounter
CPT/HCPCS: 36415; 70450; 71010; 80048; 80053; 81003; 83605; 84484; 85025; 87040; 90686; 93005; 94640; 94660; 94760; A9270-GY; J1644

== ENCOUNTER 2016-10-16 14:36 | Observation (INO) | payer MEDICARE ==
[2016-10-16 15:08] LABS: Hematocrit 47 % (42-52); Hemoglobin 15.7 g/dl (14.0-18.0); Mean Corpuscular HGB Conc 34 g/dl (31-36); Mean Corpuscular Hemoglobin 31 pg (27-31); Mean Corpuscular Volume 91 fL (80-94); Mean Platelet Volume 7 um3 (7.4-10.4); Red Blood Count 5.11 10^6/ul (4.0-5.4); Red Cell Distribution Width 14 % (10.5-15); White Blood Count 12.3 10^3/ul (3.5-10.8)
[2016-10-16 15:19] LABS: ALT 28 U/L (7-52); AST 23 U/L (13-39); Alkaline Phosphatase 50 U/L (34-104); Ammonia 40 mol/L (16-53); Anion Gap 9 mmol/L (2-11); BUN/Creatinine Ratio 22.9 (8-20); Blood Urea Nitrogen 27 mg/dL (6-24); CO2 Carbon Dioxide 23 mmol/L (22-32); Calcium 9.6 mg/dL (8.6-10.3); Chloride 101 mmol/L (101-111); EGFR African American 75.6 (>60); EGFR Non-African American 58.8 (>60); Globulin 3.2 g/dL (2-4); Glucose 130 mg/dL (70-100); Magnesium 1.9 mg/dL (1.9-2.7); Potassium 4.7 mmol/L (3.5-5.0); Sodium 133 mmol/L (133-145); Total Protein 7.2 g/dL (6.4-8.9)
[2016-10-16 15:21] LABS: Troponin I 0.03 ng/mL (<0.04)
[2016-10-16 15:24] LABS: B Type Natriuretic Peptide 50 pg/mL
[2016-10-16 15:35] LABS: Alcohol < 10 mg/dL (<10)
[2016-10-16 15:45] LABS: TSH (Thyroid Stimulating Horm) 0.45 mcIU/mL (0.34-5.60)
--- NOTE | 2016-10-16 16:04 | RAD ---
Indication: RIGHT rib cage pain post fall. Comparison: June 08, 2016 Technique: 5 view RIGHT unilateral rib series. Sitting AP and lateral chest views. Report: No RIGHT rib fracture, pneumothorax, or pleural effusion. Aside from mild prominence of the interstitial markings the lungs and pleural spaces are clear. Unchanged RIGHT atrial and RIGHT ventricular level pacemaker leads. Mild cardiomegaly. Unremarkable central pulmonary vasculature.. IMPRESSION: No evidence for RIGHT rib fracture or other traumatic thoracic injury. No acute cardiopulmonary process evident.
--- NOTE | 2016-10-16 17:41 | RAD ---
Indication: Syncopal episode. [employer]ISTANT shunt. Comparison: August 19, 2016 CT. Technique: Noncontrast CT vertex of skull through foramen magnum. Report: Tip of the RIGHT frontal ventriculoperitoneal shunt catheter is at the LEFT lateral ventricle anterior horn approximating the lateral margin/caudate head without change. Moderate lateral ventriculomegaly without change. Unremarkable cerebral sulci and basal cisterns for age. Decreased density in the periventricular and subcortical white matter while non-specific is most likely due to chronic microangiopathy. Negative for gabriel matter white matter obscuration, intra or extra-axial hemorrhage, or mass effect. Unremarkable orbital contents. No suspicious lesion of the calvarium or skull base. Clear visualized paranasal sinuses and mastoid air spaces. IMPRESSION: 1. No acute intracranial process evident. 2. Mild involutional change and stigmata of chronic small vessel ischemic disease. 3. Unchanged position of the RIGHT frontal ventriculoperitoneal shunt catheter terminating at the frontal horn of the LEFT lateral ventricle. Unchanged moderate lateral ventriculomegaly.
[2016-10-16] MEDS ORDERED: Acetaminophen TAB* 325 MG PO PRN (18:45)
[2016-10-16] MEDS ORDERED: Polyethylene Glycol 3350* 17 GM PACKET PO PRN (19:07)
--- NOTE | 2016-10-16 19:11 | ADMNOTE ---
Subjective Date of Service: 10/16/16 Interval History: ADMISSION HISTORY AND PHYSICAL EXAM: Allergies Allergy/AdvReac Type Severity Reaction Status Date / Time Celecoxib [From Celebrex] Allergy Unknown Verified 10/16/16 14:52 Reaction Details environmental Allergy Unknown Unknown Uncoded 10/16/16 14:52 Reaction Details Home Medications Medication Instructions Recorded Confirmed Type Carvedilol TAB* [Coreg TAB*] 25 mg PO BID 02/05/14 10/16/16 History Omeprazole CAP* [Prilosec CAP* 20 20 mg PO DAILY 02/05/14 10/16/16 History MG] Ramipril CAP* [Altace CAP*] 10 mg PO BID 02/05/14 10/16/16 History Sertraline* [Zoloft*] 50 mg PO DAILY 02/05/14 10/16/16 History Sucralfate TAB* [Carafate*] 1 gm PO TID 02/05/14 10/16/16 History Melatonin 10 mg PO BEDTIME 10/04/15 10/16/16 History cloNIDine TAB* [Catapres 0.1 MG 0.3 mg PO TID 10/04/15 10/16/16 History TAB*] hydrALAZINE TAB* [Apresoline TAB*] 50 mg PO TID #0 10/04/15 10/16/16 History Budesonide/Formote 160/4.5(NF) 2 puff INH BID 03/23/16 10/16/16 History [Symbicort 160/4.5 (NF)] Glucosamine-Chondroitin 1 chw PO BID 03/23/16 10/16/16 History [Glucosamine Chondroitin S 500-400 mg] Montelukast Sodium TAB* [Singulair 10 mg PO DAILY 03/23/16 10/16/16 History 10 MG TAB*] Multivitamins/Minerals TAB* 1 tab PO DAILY 03/23/16 10/16/16 History [Theragran/minerals TAB*] Acetaminophen TAB* [Tylenol TAB*] 650 mg PO Q4H PRN #0 tab 08/23/16 10/16/16 Rx Finasteride TAB* [Proscar TAB*] 5 mg PO BEDTIME #0 08/23/16 10/16/16 Rx Meclizine TAB* [Antivert 12.5 TAB*] 12.5 mg PO Q8HR tab 08/23/16 10/16/16 Rx Polyethylene Glycol 3350* 17 gm PO DAILY PRN #0 packet 08/23/16 10/16/16 Rx [Miralax*] HPI: The patient was in [facility] recovering from a delirious episode possibly due to oseltamivir. He was there about a month and was discharged home about a week ago. He fell several times in the SNF. While there he visited his neurosurgeon to check the shunt and also saw an ENT provider who diagnosed sinusitis and presdcribed Zyrtec and Flonase. He was weak when he got home. He often felt dizzy when he stood up. He fell several times. Today he was too weak to walk. From a recent fall his R ribs are sore. He took all his meds today and ate both breakfast and lunch. His give him the meds and uses a 7 -day container. His state the ambulance crew got a BP of 70/50. Family History: Findings - Father and brother had colon cancer, brother had lung cancer Social History: Findings - Lives with his who is his SDM. 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 Never smoked. No alcohol abuse. Past Medical History: Findings - CUSTOMER CONTACT REPRESENTATIVE shunt 2009, pacer 2009, R rotator cuff repair, choleycstectomy, rupture L biceps/surgical removal Review of Systems - Measurements Intake and Output: Intake and Output Last 24 Hours 10/14/16 10/15/16 10/16/16 10/17/16 06:59 06:59 06:59 06:59 Weight 260 lb Other: Date of Last Bowel 10/16/16 Movement # Bowel Movements 2 Estimated Stool Amount Large - Review of Systems Constitutional Symptoms: Negative: Weight Gain, Weight Loss, Weakness, Fatigue, Fever, Night Sweats, Unexplained Falls, Other Dermatology: Positive: Normal HEENT: Positive: Sinus Problem Eyes: Positive: Normal Thyroid: Positive: Normal Pulmonary: Positive: Normal Cardiology: Positive: Other - pacemaker Genital - Urinary: Positive: Normal Musculoskeletal: Negative: Joint Pain, Joint Stiffness, Arthritis, Osteoporosis, Low Back Pain , Sciatica, Joint Deformities, Kyphoscoliosis, Other Endocrinology: Positive: Normal Hematologic/Lymphatic: Negative: Anemia, Easy Brusing, Hx Leukemia, Hx Lymphoma, Use of Anticoagulant, Use of Antiplatelet Drugs, Other Neurology: Positive: Normal Psychiatry: Positive: Normal Allergic/Immunologic: Negative: Hx Anaphylaxis, Hx Angioedema, Hx Environmental, Hx Seasonal, Athsma, Hx HIV, Immunocompromise, Swollen Glands LymphNodes, Other Objective Vital Signs 10/16/16 10/16/16 10/16/16 14:45 14:52 14:54 Temperature 97.1 F Pulse Rate 74 72 Respiratory 20 Rate Blood Pressure 137/63 127/67 (mmHg) O2 Sat by Pulse 95 96 Oximetry 10/16/16 10/16/16 10/16/16 15:00 15:02 16:00 Temperature Pulse Rate 80 69 Respiratory Rate Blood Pressure 121/74 (mmHg) O2 Sat by Pulse 94 95 94 Oximetry 10/16/16 10/16/16 17:00 18:00 Temperature Pulse Rate 73 75 Respiratory 18 18 Rate Blood Pressure (mmHg) O2 Sat by Pulse 95 96 Oximetry Oxygen Devices in Use Now: None Appearance: Supine on ED stretcher. Neutral affect. Looks comfortable. Eyes: No Scleral Icterus Ears/Nose/Mouth/Throat: Clear Oropharnyx, Mucous Membranes Moist Neck: NL Appearance and Movements; NL JVP, No Thyroid Enlargement, Masses Respiratory: Symmetrical Chest Expansion and Respiratory Effort, Clear to Auscultation, Clear to Percussion Cardiovascular: NL Sounds; No Murmurs; No JVD, RRR, No Edema, - Extremities: No Edema, No Clubbing, Cyanosis, - Skin: No Rash or Ulcers, No Nodules or Sclerosis, - Neurological: Alert and Oriented x 3, NL Sensation Result Diagrams: 10/16/16 14:47 10/16/16 14:47 Additional Lab and Data: Lab Results 10/16/16 10/16/16 10/16/16 Range/Units 14:47 14:47 14:47 WBC 12.3 H (3.5-10.8) 10^3/ul RBC 5.11 (4.0-5.4) 10^6/ul Hgb 15.7 (14.0-18.0) g/dl Hct 47 (42-52) % MCV 91 (80-94) fL MCH 31 (27-31) pg MCHC 34 (31-36) g/dl RDW 14 (10.5-15) % Plt Count 243 (150-450) 10^3/ul MPV 7 L (7.4-10.4) um3 Neut % (Auto) 76.7 (38-83) % Lymph % (Auto) 13.9 L (25-47) % Early % (Auto) 7.2 (1-9) % Eos % (Auto) 1.4 (0-6) % Baso % (Auto) 0.8 (0-2) % Absolute Neuts (auto) 9.4 H (1.5-7.7) 10^3/ul Absolute Lymphs (auto) 1.7 (1.0-4.8) 10^3/ul Absolute Monos (auto) 0.9 H (0-0.8) 10^3/ul Absolute Eos (auto) 0.2 (0-0.6) 10^3/ul Absolute Basos (auto) 0.1 (0-0.2) 10^3/ul Absolute Nucleated RBC 0 10^3/ul Nucleated RBC % 0 Sodium 133 (133-145) mmol/L Potassium 4.7 (3.5-5.0) mmol/L Chloride 101 (101-111) mmol/L Carbon Dioxide 23 (22-32) mmol/L Anion Gap 9 (2-11) mmol/L BUN 27 H (6-24) mg/dL Creatinine 1.18 H (0.67-1.17) mg/dL Est GFR ( Amer) 75.6 (>60) Est GFR (Non-Af Amer) 58.8 (>60) BUN/Creatinine Ratio 22.9 H (8-20) Glucose 130 H (70-100) mg/dL Lactic Acid 1.5 (0.5-2.0) mmol/L Calcium 9.6 (8.6-10.3) mg/dL Magnesium 1.9 (1.9-2.7) mg/dL Total Bilirubin 0.40 (0.2-1.0) mg/dL AST 23 (13-39) U/L ALT 28 (7-52) U/L Alkaline Phosphatase 50 (34-104) U/L Ammonia (16-53) mol/L Troponin I 0.03 (<0.04) ng/mL B-Natriuretic Peptide ( - 100) pg/mL Total Protein 7.2 (6.4-8.9) g/dL Albumin 4.0 (3.2-5.2) g/dL Globulin 3.2 (2-4) g/dL Albumin/Globulin Ratio 1.3 (1-3) TSH Pending Serum Alcohol < 10 (<10) mg/dL 10/16/16 Range/Units 14:47 WBC (3.5-10.8) 10^3/ul RBC (4.0-5.4) 10^6/ul Hgb (14.0-18.0) g/dl Hct (42-52) % MCV (80-94) fL MCH (27-31) pg MCHC (31-36) g/dl RDW (10.5-15) % Plt Count (150-450) 10^3/ul MPV (7.4-10.4) um3 Neut % (Auto) (38-83) % Lymph % (Auto) (25-47) % Early % (Auto) (1-9) % Eos % (Auto) (0-6) % Baso % (Auto) (0-2) % Absolute Neuts (auto) (1.5-7.7) 10^3/ul Absolute Lymphs (auto) (1.0-4.8) 10^3/ul Absolute Monos (auto) (0-0.8) 10^3/ul Absolute Eos (auto) (0-0.6) 10^3/ul Absolute Basos (auto) (0-0.2) 10^3/ul Absolute Nucleated RBC 10^3/ul Nucleated RBC % Sodium (133-145) mmol/L Potassium (3.5-5.0) mmol/L Chloride (101-111) mmol/L Carbon Dioxide (22-32) mmol/L Anion Gap (2-11) mmol/L BUN (6-24) mg/dL Creatinine (0.67-1.17) mg/dL Est GFR ( Amer) (>60) Est GFR (Non-Af Amer) (>60) BUN/Creatinine Ratio (8-20) Glucose (70-100) mg/dL Lactic Acid (0.5-2.0) mmol/L Calcium (8.6-10.3) mg/dL Magnesium (1.9-2.7) mg/dL Total Bilirubin (0.2-1.0) mg/dL AST (13-39) U/L ALT (7-52) U/L Alkaline Phosphatase (34-104) U/L Ammonia 40 (16-53) mol/L Troponin I (<0.04) ng/mL B-Natriuretic Peptide 50 ( - 100) pg/mL Total Protein (6.4-8.9) g/dL Albumin (3.2-5.2) g/dL Globulin (2-4) g/dL Albumin/Globulin Ratio (1-3) TSH Serum Alcohol (<10) mg/dL Assess/Plan/Problems-Billing Assessment: - Patient Problems (1) Pre-syncope Current Visit: Yes Status: Acute Comment: At least in part due to large doses of 4 BP meds. I am lowering the doses of 3 of the 4 BP meds. Dizziness is clearly orthostatic. (2) Gait abnormality Current Visit: Yes Status: Acute Code(s): R26.9 - UNSPECIFIED ABNORMALITIES OF GAIT AND MOBILITY SNOMED Code(s): 34296422 Comment: I think he may have a combination of deconditioning and orthostatic hypotension. PT eval requested. (3) HTN (hypertension) Current Visit: No Status: Chronic Priority: Medium Code(s): I10 - ESSENTIAL (PRIMARY) HYPERTENSION SNOMED Code(s): 95804094 Comment: Continue Coreg at home dose, reduce Clonidine, Hydralazine, Ramipril doses. He missed the second of his tid doses on DOA. (4) NPH (normal pressure hydrocephalus) Current Visit: No Status: Chronic Code(s): G91.2 - (IDIOPATHIC) NORMAL PRESSURE HYDROCEPHALUS SNOMED Code(s): 55283792 Comment: - The patient is s/p shunt placement. - Underwent shunt series in 02/2016 which appeared normal. (5) Sleep apnea Current Visit: No Status: Chronic Code(s): G47.30 - SLEEP APNEA, UNSPECIFIED SNOMED Code(s): 99466268 Comment: Continue CPAP, brought in his machine.
--- NOTE | 2016-10-16 20:21 | ED ---
Brenda Hoffman Matthew, scribed for Primo Galeano MD on 10/16/16 at 1512 . Syncope/Near Syncope - HPI Summary HPI Summary: An 86 y/o male presents to the ED for nearly passing out today. This morning, the patient felt weak, but was able to eat a full breakfast. Then as the patient was walking from the table to the restroom, he felt like he was going to pass out and the patient's helped him to the ground. The patient denies any SOB, chest pain, LOC, or head trauma. Associated symptoms include dizziness and headache. According to his , the patent's BP was 70/40 upon EMS arrival. He took his HTN medication this morning. Yesterday, the patient fell backwards, landing on his right side, after getting up from the table. This fall was unwitnessed by his , but the patient denied head trauma and SOB. He did not want to go to the ED at that time. Last night and today he's c/o of right rib pain. In July of 2016 during a cruise the patient developed flu and pneumonia. At that time, he was placed in rehab and just arrived home a week ago. He has a brain injury from 2014. He has a ventricular shunt. - History Of Current Complaint Chief Complaint: EDSyncope Time Seen by Provider: 10/16/16 14:48 Hx Obtained From: Family/Bezel Cutter - Onset/Duration: Sudden Onset Context: Witnessed Activity At Onset: Exertion - ambulation Associated Head Trauma: No Associated Signs And Symptoms: Dizzy, Headache, Weakness - Allergies/Home Medications Allergies/Adverse Reactions: Allergies Allergy/AdvReac Type Severity Reaction Status Date / Time Celecoxib [From Celebrex] Allergy Unknown Verified 10/16/16 14:52 Reaction Details environmental Allergy Unknown Unknown Uncoded 10/16/16 14:52 Reaction Details PMH/Surg Hx/FS Hx/Imm Hx Endocrine/Hematology History: Reports: Hx Anticoagulant Therapy - low dose asa Denies: Hx Diabetes, Hx Thyroid Disease Cardiovascular History: Reports: Hx Aneurysm - Thoracic Aortic Aneurysm, Hx Angina, Hx Auto Implanted Cardiovert Defib, Hx Coronary Artery Disease, Hx Hypercholesterolemia, Hx Hypertension, Hx Pacemaker/ICD, Other Cardiovascular Problems/Disorders Denies: Hx Myocardial Infarction, Hx Valvular Heart Disease Respiratory History: Reports: Hx Chronic Obstructive Pulmonary Disease (COPD), Hx Sleep Apnea - current BiPAP user, Other Respiratory Problems/Disorders - allergic rhinitis Denies: Hx Asthma GI History: Reports: Hx Gall Bladder Disease - s/p cholecystectomy, Hx Gastroesophageal Reflux Disease, Other GI Disorders - s/p bilateral inguinal hernia History: Reports: Hx Benign Prostatic Hyperplasia - w/o urinary obstruction Denies: Hx Dialysis, Hx Renal Disease - [place]I IN 70'S Musculoskeletal History: Denies: Hx Back Problems Sensory History: Reports: Hx Contacts or Glasses Opthamlomology History: Reports: Hx Contacts or Glasses Neurological History: Reports: Hx Headaches, Other Neuro Impairments/Disorders - Brain Shunt for Normal Pressure Hydrocephalus (NPH) Denies: Hx Dementia, Hx Seizures Psychiatric History: Reports: Hx Depression - Surgical History Surgery Procedure, Year, and Place: tonsils, bilateral inguinal hernia, 2009- pacemaker, 2009- VALVE ASSEMBLER shunt for NPH,left arm bicep removal, cholecysectomy; head SX 2X to the shunt 02/2015 at [facility] [place]. Infectious Disease History: No Infectious Disease History: Denies: Traveled Outside the [place] in Last 30 Days - Family History Known Family History: Positive: Hypertension, Other - cancer: lung, colon - Social History Alcohol Use: None Hx Substance Use: No Substance Use Type: Reports: None Hx Tobacco Use: No Smoking Status (MU): Never Smoked Tobacco Review of Systems Constitutional: Negative Eyes: Negative ENT: Negative Cardiovascular: Negative Negative: Chest Pain Respiratory: Negative Negative: Shortness Of Breath Gastrointestinal: Negative Genitourinary: Negative Positive: Myalgia - Right Rib Pain Skin: Negative Neurological: Other - Dizziness Positive: Headache All Other Systems Reviewed And Are Negative: Yes Physical Exam - Summary Physical Exam Summary: VITAL SIGNS: Reviewed. GENERAL: Patient is an obese dishevel, male who is lying comfortable in the stretcher. He seems to be dehydrated. Patient is not in any acute respiratory distress. HEAD AND FACE: No signs of trauma. No ecchymosis, hematomas or skull depressions. EYES: PERRLA, EOMI x 2 EARS: Hearing grossly intact.. MOUTH: Oropharynx within normal limits. NECK: Supple, trachea is midline, no adenopathy, no JVD, no carotid bruit CHEST: Symmetric, no tenderness at palpation LUNGS: Clear to auscultation bilaterally. No wheezing or crackles. CVS: Regular rate and rhythm, S1 and S2 present, no murmurs or gallops appreciated. ABDOMEN: Soft, non-tender. No signs of distention. No rebound no guarding, and no masses palpated. Bowel sounds are normal. EXTREMITIES: FROM in all major joints, no edema, no cyanosis or clubbing. NEURO: Alert and oriented x 3. No acute neurological deficits. Speech is normal and follows commands. SKIN: Dry and warm Triage Information Reviewed: Yes Vital Signs On Initial Exam: Initial Vitals Temp Pulse Resp BP Pulse Ox 97.1 F 74 20 137/63 95 10/16/16 14:45 10/16/16 14:45 10/16/16 14:45 10/16/16 14:45 10/16/16 14:45 Vital Signs Reviewed: Yes Diagnostics - Vital Signs Vital Signs Temp Pulse Resp BP Pulse Ox 10/16/16 14:45 97.1 F 74 20 137/63 95 - Laboratory Lab Results: Lab Results 10/16/16 10/16/16 10/16/16 Range/Units 14:47 14:47 14:47 WBC 12.3 H (3.5-10.8) 10^3/ul RBC 5.11 (4.0-5.4) 10^6/ul Hgb 15.7 (14.0-18.0) g/dl Hct 47 (42-52) % MCV 91 (80-94) fL MCH 31 (27-31) pg MCHC 34 (31-36) g/dl RDW 14 (10.5-15) % Plt Count 243 (150-450) 10^3/ul MPV 7 L (7.4-10.4) um3 Neut % (Auto) 76.7 (38-83) % Lymph % (Auto) 13.9 L (25-47) % Harris % (Auto) 7.2 (1-9) % Eos % (Auto) 1.4 (0-6) % Baso % (Auto) 0.8 (0-2) % Absolute Neuts (auto) 9.4 H (1.5-7.7) 10^3/ul Absolute Lymphs (auto) 1.7 (1.0-4.8) 10^3/ul Absolute Monos (auto) 0.9 H (0-0.8) 10^3/ul Absolute Eos (auto) 0.2 (0-0.6) 10^3/ul Absolute Basos (auto) 0.1 (0-0.2) 10^3/ul Absolute Nucleated RBC 0 10^3/ul Nucleated RBC % 0 Sodium 133 (133-145) mmol/L Potassium 4.7 (3.5-5.0) mmol/L Chloride 101 (101-111) mmol/L Carbon Dioxide 23 (22-32) mmol/L Anion Gap 9 (2-11) mmol/L BUN 27 H (6-24) mg/dL Creatinine 1.18 H (0.67-1.17) mg/dL Est GFR ( Amer) 75.6 (>60) Est GFR (Non-Af Amer) 58.8 (>60) BUN/Creatinine Ratio 22.9 H (8-20) Glucose 130 H (70-100) mg/dL Lactic Acid 1.5 (0.5-2.0) mmol/L Calcium 9.6 (8.6-10.3) mg/dL Magnesium 1.9 (1.9-2.7) mg/dL Total Bilirubin 0.40 (0.2-1.0) mg/dL AST 23 (13-39) U/L ALT 28 (7-52) U/L Alkaline Phosphatase 50 (34-104) U/L Ammonia (16-53) mol/L Troponin I 0.03 (<0.04) ng/mL B-Natriuretic Peptide ( - 100) pg/mL Total Protein 7.2 (6.4-8.9) g/dL Albumin 4.0 (3.2-5.2) g/dL Globulin 3.2 (2-4) g/dL Albumin/Globulin Ratio 1.3 (1-3) TSH Pending Serum Alcohol < 10 (<10) mg/dL 10/16/16 Range/Units 14:47 WBC (3.5-10.8) 10^3/ul RBC (4.0-5.4) 10^6/ul Hgb (14.0-18.0) g/dl Hct (42-52) % MCV (80-94) fL MCH (27-31) pg MCHC (31-36) g/dl RDW (10.5-15) % Plt Count (150-450) 10^3/ul MPV (7.4-10.4) um3 Neut % (Auto) (38-83) % Lymph % (Auto) (25-47) % Harris % (Auto) (1-9) % Eos % (Auto) (0-6) % Baso % (Auto) (0-2) % Absolute Neuts (auto) (1.5-7.7) 10^3/ul Absolute Lymphs (auto) (1.0-4.8) 10^3/ul Absolute Monos (auto) (0-0.8) 10^3/ul Absolute Eos (auto) (0-0.6) 10^3/ul Absolute Basos (auto) (0-0.2) 10^3/ul Absolute Nucleated RBC 10^3/ul Nucleated RBC % Sodium (133-145) mmol/L Potassium (3.5-5.0) mmol/L Chloride (101-111) mmol/L Carbon Dioxide (22-32) mmol/L Anion Gap (2-11) mmol/L BUN (6-24) mg/dL Creatinine (0.67-1.17) mg/dL Est GFR ( Amer) (>60) Est GFR (Non-Af Amer) (>60) BUN/Creatinine Ratio (8-20) Glucose (70-100) mg/dL Lactic Acid (0.5-2.0) mmol/L Calcium (8.6-10.3) mg/dL Magnesium (1.9-2.7) mg/dL Total Bilirubin (0.2-1.0) mg/dL AST (13-39) U/L ALT (7-52) U/L Alkaline Phosphatase (34-104) U/L Ammonia 40 (16-53) mol/L Troponin I (<0.04) ng/mL B-Natriuretic Peptide 50 ( - 100) pg/mL Total Protein (6.4-8.9) g/dL Albumin (3.2-5.2) g/dL Globulin (2-4) g/dL Albumin/Globulin Ratio (1-3) TSH Serum Alcohol (<10) mg/dL Result Diagrams: 10/16/16 14:47 10/16/16 14:47 Lab Statement: Any lab studies that have been ordered have been reviewed, and results considered in the medical decision making process. - Radiology Rib XR Xray Interpretation: No Acute Changes - IMPRESSION: No evidence for RIGHT rib fracture or other traumatic thoracic injury. No acute cardiopulmonary process evident. Radiology Interpretation Completed By: Radiologist CXR Xray Interpretation: No Acute Changes - IMPRESSION: No evidence for RIGHT rib fracture or other traumatic thoracic injury. No acute cardiopulmonary process evident. Radiology Interpretation Completed By: Radiologist - CT Brain CT CT Interpretation: No Acute Changes - IMPRESSION: 1. No acute intracranial process evident. 2. Mild involutional change and stigmata of chronic small vessel ischemic disease. 3. Unchanged position of the RIGHT frontal ventriculoperitoneal shunt catheter terminating at the frontal horn of the LEFT lateral ventricle. Unchanged moderate lateral ventriculomegaly. CT Interpretation Completed By: Radiologist - EKG 16:08 Cardiac Rate: NL - 70 bpm EKG Interpretation: Ventricular Paced: No ST elevation Course/Dx Assessment/Plan: An 86 y/o male presents to the ED for nearly passing out today. This morning, the patient felt weak, but was able to eat a full breakfast. Then as the patient was walking from the table to the restroom, he felt like he was going to pass out and the patient's helped him to the ground. The patient denies any SOB, chest pain, LOC, or head trauma. Associated symptoms include dizziness and headache. According to his , the patent's BP was 70/40 upon EMS arrival. He took his HTN medication this morning. Yesterday, the patient fell backwards, landing on his right side, after getting up from the table. This fall was unwitnessed by his , but the patient denied head trauma and SOB. He did not want to go to the ED at that time. Last night and today he's c/o of right rib pain. In July of 2016 during a cruise the patient developed flu and pneumonia. At that time, he was placed in rehab and just arrived home a week ago. He has a brain injury from 2014. He has a ventricular shunt. Blood WNL except WBC 12.3, increased BUN and creatinine. Head CT shows no acute intracranial pathology. CXR shows no acute pathology. Rib XR shows no acute fracture or dislocation of the ribs. In the ED course, the patient has remained stable. However, when I tried to ambulate the patient he is unable to have a good steady ambulation. The patient was unable to get out of the bed from so much weakness. At this point, I discussed the findings with Dr. Galeano who accepted the patient for admission for generalized weakness and unsafe discharged. - Diagnoses Differential Diagnosis/HQI/PQRI: Positive: Cerebral Vascular Accident, Dysrhythmia, Hypovolemia, Myocardial Infarction, Transient Ischemic Attack Provider Diagnoses: Weakness - Physician Notifications Discussed Care Of Patient With: Dr. Galeano (Hospitalist) at 18:18 -- Notified of patient's history and will admit the patient. Discharge - Discharge Plan Condition: Stable Disposition: ADMITTED TO [facility] The documentation as recorded by the Brenda chin Matthew accurately reflects the service I personally performed and the decisions made by me, Primo Galeano MD.
[2016-10-16] MEDS: Budesonide/Formote 160/4.5(NF) MDI INH SCH (21:08)
[2016-10-16] MEDS: cloNIDine TAB* 0.1 MG PO SCH (21:44)
[2016-10-16] MEDS: Carvedilol TAB* 25 MG PO SCH (21:45)
[2016-10-16] MEDS: Ramipril CAP* 5 MG PO SCH (21:45)
[2016-10-16] MEDS: Finasteride TAB* 5 MG PO SCH (21:46)
[2016-10-16] MEDS: hydrALAZINE TAB* 25 MG PO SCH (21:46)
[2016-10-16] MEDS: Enoxaparin(*) 40 MG/0.4 ML SYR SUBCUT SCH (21:47)
[2016-10-17] MEDS: cloNIDine TAB* 0.1 MG PO SCH ×3 (08:27→20:37)
[2016-10-17] MEDS: hydrALAZINE TAB* 25 MG PO SCH ×3 (08:27→20:37)
[2016-10-17] MEDS: Carvedilol TAB* 25 MG PO SCH ×2 (08:27→20:37)
[2016-10-17] MEDS: Montelukast Sodium TAB* 10 MG PO SCH (08:28)
[2016-10-17] MEDS: Ramipril CAP* 5 MG PO SCH ×2 (08:28→20:36)
[2016-10-17] MEDS: Omeprazole CAP* 20 MG PO SCH (08:28)
[2016-10-17] MEDS: Budesonide/Formote 160/4.5(NF) MDI INH SCH ×2 (08:43→20:52)
--- NOTE | 2016-10-17 09:44 | PN ---
Subjective Date of Service: 10/17/16 Interval History: Seen and examined Feels dizzy which he reports is usual. Denies CP/SOB, N/V. endorses constipation Family History: Findings - Father and brother had colon cancer, brother had lung cancer Social History: Findings - Lives with his who is his SDM. 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 Never smoked. No alcohol abuse. Past Medical History: Findings - [employer] shunt 2009, pacer 2010, R rotator cuff repair, choleycstectomy, rupture L biceps/surgical removal Objective Active Medications: Acetaminophen (Tylenol Tab*) 650 mg PO Q4H PRN PRN Reason: FEVER/PAIN Budesonide/Formoterol Fumarate (Symbicort 160/4.5 (Nf)) 2 puff INH BID [facility] PRN Reason: Protocol Last Admin: 10/17/16 08:43 Dose: Not Given Carvedilol (Coreg Tab*) 25 mg PO BID [facility] Last Admin: 10/17/16 08:27 Dose: 25 mg Clonidine HCl (Catapres Tab*) 0.2 mg PO TID [facility] Last Admin: 10/17/16 08:27 Dose: 0.2 mg Enoxaparin Sodium (Lovenox(*)) 40 mg SUBCUT Q24H [facility] Last Admin: 10/16/16 21:47 Dose: 40 mg Finasteride (Proscar Tab*) 5 mg PO BEDTIME [facility] Last Admin: 10/16/16 21:46 Dose: 5 mg Hydralazine HCl (Apresoline Tab*) 25 mg PO TID [facility] Last Admin: 10/17/16 08:27 Dose: 25 mg Montelukast Sodium (Singulair Tab*) 10 mg PO DAILY [facility] Last Admin: 10/17/16 08:28 Dose: 10 mg Omeprazole (Prilosec Cap*) 20 mg PO DAILY [facility] Last Admin: 10/17/16 08:28 Dose: 20 mg Polyethylene Glycol/Electrolytes (Miralax*) 17 gm PO DAILY PRN PRN Reason: CONSTIPATION Ramipril (Altace Cap*) 5 mg PO BID [facility] Last Admin: 10/17/16 08:28 Dose: 5 mg Vital Signs 10/16/16 10/16/16 10/16/16 19:00 22:41 23:52 Temperature 99.0 F Pulse Rate 84 83 Respiratory 18 18 Rate Blood Pressure 151/61 (mmHg) O2 Sat by Pulse 96 97 Oximetry 10/17/16 10/17/16 10/17/16 03:26 03:31 08:03 Temperature 97.7 F 98.6 F Pulse Rate 70 72 70 Respiratory 18 18 Rate Blood Pressure 149/58 151/72 189/76 (mmHg) O2 Sat by Pulse 98 96 98 Oximetry Oxygen Devices in Use Now: None Appearance: sitting up in bed, NAD Eyes: No Scleral Icterus, PERRLA Ears/Nose/Mouth/Throat: - - dry MM, op clear Neck: NL Appearance and Movements; NL JVP, Trachea Midline Respiratory: Symmetrical Chest Expansion and Respiratory Effort, Clear to Auscultation Cardiovascular: NL Sounds; No Murmurs; No JVD, RRR Abdominal: NL Sounds; No Tenderness; No Distention, No Hepatosplenomegaly Lymphatic: No Cervical Adenopathy Extremities: No Edema Skin: - - healing lacerations pretibial b/l Neurological: Alert and Oriented x 3 Result Diagrams: 10/16/16 14:47 10/16/16 14:47 Additional Lab and Data: Lab Results 10/16/16 10/16/16 10/16/16 Range/Units 14:47 14:47 14:47 WBC 12.3 H (3.5-10.8) 10^3/ul RBC 5.11 (4.0-5.4) 10^6/ul Hgb 15.7 (14.0-18.0) g/dl Hct 47 (42-52) % MCV 91 (80-94) fL MCH 31 (27-31) pg MCHC 34 (31-36) g/dl RDW 14 (10.5-15) % Plt Count 243 (150-450) 10^3/ul MPV 7 L (7.4-10.4) um3 Neut % (Auto) 76.7 (38-83) % Lymph % (Auto) 13.9 L (25-47) % [place] % (Auto) 7.2 (1-9) % Eos % (Auto) 1.4 (0-6) % Baso % (Auto) 0.8 (0-2) % Absolute Neuts (auto) 9.4 H (1.5-7.7) 10^3/ul Absolute Lymphs (auto) 1.7 (1.0-4.8) 10^3/ul Absolute Monos (auto) 0.9 H (0-0.8) 10^3/ul Absolute Eos (auto) 0.2 (0-0.6) 10^3/ul Absolute Basos (auto) 0.1 (0-0.2) 10^3/ul Absolute Nucleated RBC 0 10^3/ul Nucleated RBC % 0 Sodium 133 (133-145) mmol/L Potassium 4.7 (3.5-5.0) mmol/L Chloride 101 (101-111) mmol/L Carbon Dioxide 23 (22-32) mmol/L Anion Gap 9 (2-11) mmol/L BUN 27 H (6-24) mg/dL Creatinine 1.18 H (0.67-1.17) mg/dL Est GFR ( Amer) 75.6 (>60) Est GFR (Non-Af Amer) 58.8 (>60) BUN/Creatinine Ratio 22.9 H (8-20) Glucose 130 H (70-100) mg/dL Lactic Acid 1.5 (0.5-2.0) mmol/L Calcium 9.6 (8.6-10.3) mg/dL Magnesium 1.9 (1.9-2.7) mg/dL Total Bilirubin 0.40 (0.2-1.0) mg/dL AST 23 (13-39) U/L ALT 28 (7-52) U/L Alkaline Phosphatase 50 (34-104) U/L Ammonia (16-53) mol/L Troponin I 0.03 (<0.04) ng/mL B-Natriuretic Peptide ( - 100) pg/mL Total Protein 7.2 (6.4-8.9) g/dL Albumin 4.0 (3.2-5.2) g/dL Globulin 3.2 (2-4) g/dL Albumin/Globulin Ratio 1.3 (1-3) TSH Pending Serum Alcohol < 10 (<10) mg/dL 10/16/16 Range/Units 14:47 WBC (3.5-10.8) 10^3/ul RBC (4.0-5.4) 10^6/ul Hgb (14.0-18.0) g/dl Hct (42-52) % MCV (80-94) fL MCH (27-31) pg MCHC (31-36) g/dl RDW (10.5-15) % Plt Count (150-450) 10^3/ul MPV (7.4-10.4) um3 Neut % (Auto) (38-83) % Lymph % (Auto) (25-47) % [place] % (Auto) (1-9) % Eos % (Auto) (0-6) % Baso % (Auto) (0-2) % Absolute Neuts (auto) (1.5-7.7) 10^3/ul Absolute Lymphs (auto) (1.0-4.8) 10^3/ul Absolute Monos (auto) (0-0.8) 10^3/ul Absolute Eos (auto) (0-0.6) 10^3/ul Absolute Basos (auto) (0-0.2) 10^3/ul Absolute Nucleated RBC 10^3/ul Nucleated RBC % Sodium (133-145) mmol/L Potassium (3.5-5.0) mmol/L Chloride (101-111) mmol/L Carbon Dioxide (22-32) mmol/L Anion Gap (2-11) mmol/L BUN (6-24) mg/dL Creatinine (0.67-1.17) mg/dL Est GFR ( Amer) (>60) Est GFR (Non-Af Amer) (>60) BUN/Creatinine Ratio (8-20) Glucose (70-100) mg/dL Lactic Acid (0.5-2.0) mmol/L Calcium (8.6-10.3) mg/dL Magnesium (1.9-2.7) mg/dL Total Bilirubin (0.2-1.0) mg/dL AST (13-39) U/L ALT (7-52) U/L Alkaline Phosphatase (34-104) U/L Ammonia 40 (16-53) mol/L Troponin I (<0.04) ng/mL B-Natriuretic Peptide 50 ( - 100) pg/mL Total Protein (6.4-8.9) g/dL Albumin (3.2-5.2) g/dL Globulin (2-4) g/dL Albumin/Globulin Ratio (1-3) TSH Serum Alcohol (<10) mg/dL Assess/Plan/Problems-Billing Assessment: 86 yo M h/o NPH, HTN, BPH with recent admission 08/19-08/24 with delerium thought secondary to tamiful now returning with falls - Patient Problems (1) Fall Comment: Pt ambulating without assistance (no walker or cane) at time of fall. Combination orthostatic hypotension and deconditioning thought to be contributing BP meds titrated down on admission Check orthostatics PT eval (2) OTILIO (acute kidney injury) Comment: Repeat BMP this AM consider fluids based on results (3) Leukocytosis Comment: Check UA, repeat CBC. Recent tx for sinusitis. (4) HTN (hypertension) Comment: Recheck BP now Continue Coreg at home dose, reduced Clonidine, Hydralazine, Ramipril doses but adjust today as necessary (5) NPH (normal pressure hydrocephalus) Comment: The patient is s/p shunt placement. Underwent shunt series in 02/2016 which appeared normal. CTH this admission without change from prior CTH (6) DVT prophylaxis Comment: lovenox
[2016-10-17] MEDS: Docusate CAP* 100 MG PO SCH (10:06)
[2016-10-17 10:32] LABS: Urine Bacteria Absent (Absent); Urine Bilirubin Negative (Negative); Urine Glucose Negative (Negative); Urine Nitrite Negative (Negative)
[2016-10-17 14:02] LABS: Hematocrit 44 % (42-52); Hemoglobin 15.2 g/dl (14.0-18.0); Mean Corpuscular HGB Conc 34 g/dl (31-36); Mean Corpuscular Hemoglobin 31 pg (27-31); Mean Corpuscular Volume 90 fL (80-94); Mean Platelet Volume 7 um3 (7.4-10.4); Red Cell Distribution Width 14 % (10.5-15); White Blood Count 9.2 10^3/ul (3.5-10.8)
[2016-10-17 14:13] LABS: BUN/Creatinine Ratio 26.2 (8-20); Calcium 9.6 mg/dL (8.6-10.3); EGFR African American 88.5 (>60); EGFR Non-African American 68.8 (>60); Potassium 3.9 mmol/L (3.5-5.0)
[2016-10-17] MEDS: Metoprolol Tartrate IV* 1 MG/ML 5 ML VIAL IV SCH ×2 (15:30→20:38)
[2016-10-17] MEDS ORDERED: Metoprolol Tartrate IV* 1 MG/ML 5 ML VIAL IV ONE (16:03)
[2016-10-17 17:25] LABS: Magnesium 1.9 mg/dL (1.9-2.7)
[2016-10-17] MEDS: Finasteride TAB* 5 MG PO SCH (20:37)
[2016-10-17] MEDS: Enoxaparin(*) 40 MG/0.4 ML SYR SUBCUT SCH (20:37)
[2016-10-18] MEDS: Metoprolol Tartrate IV* 1 MG/ML 5 ML VIAL IV SCH ×2 (02:52→07:58)
[2016-10-18] MEDS: hydrALAZINE TAB* 25 MG PO SCH (07:56)
[2016-10-18] MEDS: Omeprazole CAP* 20 MG PO SCH (07:56)
[2016-10-18] MEDS: Docusate CAP* 100 MG PO SCH (07:56)
[2016-10-18] MEDS: Ramipril CAP* 5 MG PO SCH (07:57)
[2016-10-18] MEDS: Carvedilol TAB* 25 MG PO SCH (07:57)
[2016-10-18] MEDS: cloNIDine TAB* 0.1 MG PO SCH (07:57)
[2016-10-18] MEDS: Montelukast Sodium TAB* 10 MG PO SCH (07:58)
[2016-10-18 08:18] VITALS: BP 151/82
--- NOTE | 2016-10-18 09:59 | DS ---
DISCHARGE/TRANSFER SUMMARY: DATE OF ADMISSION: 10/16/16 DATE OF TRANSFER: 10/18/16 DISPOSITION ON DISCHARGE: Subacute nursing to [facility]. MEDICATIONS ON DISCHARGE: 1. Carvedilol 25 mg twice daily. 2. Symbicort 160/4.5 mg two puffs twice daily. 3. Acetaminophen 650 mg every 4 hours as needed for pain or fever. 4. Glucosamine chondroitin one tab twice daily. 5. Proscar 5 mg at bedtime. 6. Multivitamin one tab daily. 7. Singulair 10 mg daily. 8. Melatonin 10 mg at bedtime as needed. 9. Meclizine 12.5 mg every 8 hours as needed for vertigo. 10. Zoloft 50 mg daily. 11. Ramipril 10 mg twice daily. 12. MiraLax 17 mg daily as needed for constipation. 13. Prilosec 20 mg daily. 14. Carafate 1 mg 3 times a day with meals. 15. Hydralazine 25 mg 3 times a day - please note decreased dose. 16. Clonidine 0.2 mg 3 times a day - please note decreased dose. 17. Ramipril 5 mg twice daily. 18. Docusate 200 mg daily. PRIMARY DIAGNOSES: 1. Deconditioning. 2. Suspected orthostatic hypotension with falls, one episode approximately 30 beats nonsustained ventricular tachycardia. SECONDARY DIAGNOSES: Include: 1. Mild dementia. 2. Acute kidney injury. 3. Hypertension. 4. History of normal pressure hydrocephalus. 5. Chronic vertiginous symptoms. 6. Obstructive sleep apnea on CPAP. 7. Depression. 8. Asthma. 9. GERD. 10. BPH. HISTORY OF PRESENT ILLNESS/HOSPITAL COURSE: This 86-year-old man, recent hospital stay with delirium which was thought secondary to Tamiflu, just completed a stay at [facility] for rehab, returned home, had several falls. Per report, apparently EMS found his blood pressure in the 70s which resolved without intervention, thought to represent orthostatic hypotension. His clonidine, hydralazine and ramipril were decreased on admission. He was rehydrated. Repeat orthostatic vital signs on the day prior to discharge did not indicate any persistent orthostatic hypotension. However, he continued to be weak with working with physical therapy; we thought he would benefit from continued physical therapy before returning to home. With his decreased doses of blood pressure medications, his blood pressures were running in the 140s to 170s systolic. For this reason, his ramipril was increased back to home dose on discharge with maintaining his decreased doses of clonidine and hydralazine. During the hospital stay, he was noted to have acute kidney injury. On presentation, creatinine of 1.18 decreased to 1.0 prior to discharge. Additionally, he had one episode of nonsustained ventricular tachycardia. His electrolytes were noted to be normal at that time. He is already taking Coreg 25 mg twice daily with heart rate controlled in the 70s. He was given two doses of 2.5 mg metoprolol IV without further episodes in the following 24 hours. No additional AV joanna blockers have been added. However, attention to their dosing should be given if additional antihypotensive effects are needed. There are no other complications of this patient's hospital stay. On the day of discharge the patient was confused; thought he already moved to [facility] and was also requesting that his IV remained in so he "receive the things that go through it." Otherwise, he had no complaints. At follow up please: 1. Evaluate physical strength. Attention to increasing strength and mobility. 2. Evaluate blood pressure. Adjust medications as needed. Again note clonidine and hydralazine decreased. 3. No other specific labs or vitals that need following. Reason to return to the hospital including, recurrent or worsening symptoms, including worsening falls, chest pain, shortness of breath, nausea, vomiting, lightheadedness, loss of consciousness, near loss of consciousness, fevers, chills, night sweats, vomiting, or diarrhea and inability to obtain or tolerate medications discussed with the patient. TIME SEEN: Greater than 45 minutes were spent on the discharge of this patient ; greater than half was [id number] with the patient. CC: [facility] * [id number]/CPS #: [id number] MTDD
[2016-10-18] MEDS: Budesonide/Formote 160/4.5(NF) MDI INH SCH (10:45)
== END 2016-10-18 11:35 ==
LOC: ED 14:36 → MEDTELE 18:40
PROVIDERS: ADMIT Internal Medicine; ATTEND Internal Medicine
DX: R55 Syncope and collapse (principal); R26.9 Unspecified abnormalities of gait and mobility; I10 Essential (primary) hypertension; G91.2 (Idiopathic) normal pressure hydrocephalus; G47.30 Sleep apnea, unspecified; N17.9 Acute kidney failure, unspecified; F03.90 Unspecified dementia, unspecified severity, without behavioral disturbance, psychotic disturbance, mood disturbance, and anxiety; F32.9 Major depressive disorder, single episode, unspecified; J45.909 Unspecified asthma, uncomplicated; K21.9 Gastro-esophageal reflux disease without esophagitis; N40.0 Benign prostatic hyperplasia without lower urinary tract symptoms; Z91.81 History of falling; Z95.810 Presence of automatic (implantable) cardiac defibrillator; I20.9 Angina pectoris, unspecified; Z79.82 Long term (current) use of aspirin; Z79.899 Other long term (current) drug therapy; Z88.8 Allergy status to other drugs, medicaments and biological substances; J44.0 Chronic obstructive pulmonary disease with (acute) lower respiratory infection
CPT/HCPCS: 36415; 70450; 71020; 80048; 80053; 80320; 81003; 81015; 82140; 83605; 83735; 83880; 84443; 84484; 85025; 87086; 93005; 96372; 96374; 96376; 99283; A9270-GY; G0378; G0480; G8978-GP-CL; G8979-GP-CI; G8980-GP-CL; J1650